=== PATIENT | female | born 1990 | race Caucasian/White ===

== ENCOUNTER 2022-03-05 14:46 | Emergency (ER) | payer BC, SELFPAY ==
[2022-03-05 15:30] VITALS: BP 137/71; PULSE 104; RESP 18; TEMP 36.4; O2SAT 99; BMI 33.5
--- NOTE | 2022-03-05 16:46 | ED_ITS ---
HPI - General Adult General Chief complaint: Allergic Reaction Stated complaint: Allergic reaction, symptoms persit Time Seen by Provider: 03/05/22 16:32 History of Present Illness HPI narrative: This 31-year-old male was stung by a bee a couple days ago and has increasing swelling and erythema of his left hand. He was seen in urgent care yesterday and started on Keflex. He has taken 6 tablets since then. He reports increased swelling and states that the redness has extended from the border of his left wrist up into his forearm by about 5 more cm. He does not report any fever or other systemic symptoms. Related Data Home Medications Medication Instructions Recorded Confirmed cephalexin 500 mg capsule mg 03/05/22 testosterone cypionate 200 mg/mL mg 03/05/22 intramuscular oil Previous Rx's Medication Instructions Recorded amoxicillin 875 mg-potassium 1 tab PO BID 10 days #20 tabs 03/05/22 clavulanate 125 mg tablet methylprednisolone 4 mg tablets in See Rx Instructions PO .COMPLEX 03/05/22 a dose pack (Medrol (Santi)) #21 ea Allergies Allergy/AdvReac Type Severity Reaction Status Date / Time nortriptyline Allergy Verified 03/05/22 15:34 Review of Systems Status of ROS: Reports: 10 or more systems reviewed and unremarkable except as noted in History and below Narrative: Constitutional: No fevers, no weight gain or loss. Eyes: No discharge. No vision changes. HENT: No congestion, no sore throat, no ear pain. Cardiovascular: No chest pain, no palpitations. Respiratory: No shortness of breath, no wheezes, no cough. Gastrointestinal: No abdominal pain, no vomiting, no diarrhea. Genitourinary: No dysuria, no hematuria. Musculoskeletal: Normal range of motion. Skin: Left hand swelling with erythema. Neurological: No dizziness, weakness, sensory change, speech change. Endo/Heme/Allergies: No bruising or bleeding. No polydipsia. Pysch: no suicidality, no anxiety, no insomnia. All other systems reviewed and are negative. Exam Narrative: Exam Narrative: Constitutional: Well-developed, well-nourished, no acute distress. HEENT: Normocephalic, atraumatic. Neck: Normal range of motion. Nontender. Supple. Heart: Intact distal pulses. Lungs: No chest discomfort. No wheezes, rhonchi, or rales. Abdomen: Nontender. Back: Normal range of motion. Extremities: Normal range of motion. Left hand swelling and erythema secondary to a bee sting with subsequent cellulitis. There is no sign of abscess. Skin: Intact. No rash. Warm. No erythema or pallor. Neurologic: No altered sensation. No weakness. Alert and oriented. Psychiatric: No suicidality. No anxiety or depression. No insomnia. Nursing notes and vitals signs are reviewed. Const: Vital Signs, click to edit/add: Vital Signs - 24 hr 03/05/22 15:30 Temperature 97.5 F L Pulse Rate [Right Pulse Oximeter] 104 H Respiratory Rate 18 Blood Pressure [Ri t Upper Arm] 137/71 Pulse Oximetry 99 Oxygen Delivery Me thod Room Air Course Vital Signs Vital signs: Initial Vital Signs Temperature 97.5 F L 03/05/22 15:30 Temperature Source Temporal Artery Scan 03/05/22 15:30 Pulse Rate 104 H 03/05/22 15:30 Respiratory Rate 18 03/05/22 15:30 Blood Pressure 137/71 03/05/22 15:30 Blood Pressure Mean 93 03/05/22 15:30 Blood Pressure Position Sitting 03/05/22 15:30 Pulse Oximetry 99 03/05/22 15:30 Oxygen Delivery Method 03/05/22 15:30 Vital Signs Temperature 97.5 F L 03/05/22 15:30 Pulse Rate 104 H 03/05/22 15:30 Respiratory Rate 18 03/05/22 15:30 Blood Pressure 137/71 03/05/22 15:30 Pulse Oximetry 99 03/05/22 15:30 Oxygen Delivery Method 03/05/22 15:30 Temperature 97.5 F L 03/05/22 15:30 Pulse Rate 104 H 03/05/22 15:30 Respiratory Rate 18 03/05/22 15:30 Blood Pressure 137/71 03/05/22 15:30 Pulse Oximetry 99 03/05/22 15:30 Oxygen Delivery Method 03/05/22 15:30 Medical Decision Making MDM Narrative Medical decision making narrative: This patient comes in with swelling and erythema of his left hand due to a bee sting. He arrives with no sign of fever but does have a pulse at 104 beats per minute. His blood pressure is in normal range. He is not showing signs of systemic infection or sepsis. His symptoms are yet rather localized but have spread a little bit from yesterday which may be a typical response to the bee sting and subsequent cellulitis. He has been taking Keflex. I did advise him to discontinue this medicine and did provide a prescription for Augmentin and a Medrol Dose Pack. I describe signs and symptoms that would indicate a need for return and re-evaluation. Discharge Plan Discharge Clinical Impression: Cellulitis, Allergic reaction Patient Disposition: Home, Self-Care Condition: Stable Additional Instructions: Take medication as prescribed. Follow up with MD or return if worsening symptoms happen. Prescriptions: New methylprednisolone [Medrol (Santi)] 4 mg tablets,dose pack See Rx Instructions .ROUTE .COMPLEX Qty: 21 0RF Rx Instructions: orally per package directions amoxicillin-pot clavulanate 875-125 mg tablet 1 tab PO BID 10 Days Qty: 20 0RF No Action cephalexin 500 mg capsule testosterone cypionate 200 mg/mL oil Label Comments: INJECT 0.5 ML (100 MG) INTRAMUSCULAR ONCE WEEKLY. Follow Up/Referrals: Zoe Mas MD [Primary Care Provider] - Stand Alone Forms: [facility] Info Instructions
--- OUTSIDE RECORDS SUMMARY | 2022-03-05 17:07 | XMS_ITS | Encounter Summary ---
:1990 Author Organization [facility] Address [address] [place] [address]. [place] [address] Care Team Providers Name Role Phone Zoe Mas MD Primary Care Provider Corbin Galvin Unavailable Sowmya Up MD Unavailable Encounter Details Date Type Department Care Team Description 02/19/2020 Travel Social History Tobacco Use Types Packs/Day Years Used Date Never Smoker Dip, chew, snus or snuff Jose L t: 03/12/2019 Smokeless Tobacco: Former User Q uit: 03/12/2019 Alcohol Use Standard Drinks/Week Comments Yes 0 (1 standard drink = 0.6 oz pure alcoho l) occasionally Alcohol Habits Answer Date Recorded How often do you have a drink containing alcohol? Not asked How many drinks containing alcohol do you have on a Not aske d typical day when you are drinking? How often do you have six or more drinks on one occasion? No t asked Comment: occasionally 12/17/2019 Sex Assigned at Date Recorded Female 11/03/2018 10:19 AM CDT COVID-19 Exposure Response Date Recorded In the last month, have you been in contact with No / Unsure 02/19/2020 12:17 PM CDT someone who was confirmed or suspected to have Coronavirus / COVID-19? documented as of this encounter Plan of Treatment Not on filedocumented as of this encounter Visit Diagnoses Not on filedocumented in this encounter Care Teams Social Services Coordinator Relationship Specialty Start Date End Date Zoe Mas MD PCP - General 11/03/18 [facility] [address] [place] [address] Corbin Galvin Specialty Compliance Examiner Plastic Surgery 11/03/18 Sowmya Up MD Plastic Surgery 11/03/[address] [place] [address] [address] [place] [address] documented as of this encounter
--- OUTSIDE RECORDS SUMMARY | 2022-03-05 17:07 | XMS_ITS | Encounter Summary ---
:1990 Author Organization [place] Address [facility] [place] [address] Care Team Providers Name Role Phone Zoe Mas MD Primary Care Provider Corbin Galvin Unavailable Sowmya Up MD Unavailable Reason for Visit Reason Comments Surgical Followup Pt here for 8 week post op Encounter Details Date Type Department Care Team Description 02/19/2020 [facility] Visit [facility] Sowmya Up S/Santhosh b ilateral Reconstructive Surge marely Petersen MD mastectomy (Primary [address] [facility] [address] 4th Floor [facility] [address] [place] [address] [phone] Social History Tobacco Use Types Packs/Day Years [...] / COVID-19? documented as of this encounter Progress Notes Sowmya Up MD - 02/19/2020 12:30 PM CDT PLASTICS POST-OP This is a 29 year old trans male with a history of gender dysphoria who presents 2 months post-op after a bilateral simple mastectomy with nipple graft conservation on 12/18. He is here today by himself. Denies zingers. Occasionally experiences discomfort around incisions of nipples grafts when he shivers. Incision scars sensitive to moving direct pressure. States he has newly developed left lateral striae near nipple graft. Slight tightness but not limiting. Reports full range of motion. Had been applying Mederma daily but discontinued because it was $20 for a small tube that would onlylast him a few days. PE: Chest: Nice chest contour. Good symmetry. Slight thickness of incision scars, variable along incisions, with more on right side. Right nipple graft slightly flatter and more pigmented than the left. Left nipple regaining pigmentation around perimeter. [place] left lateral striae. Hirsute along sternum. Tiny bilateral dog-ears. Photos taken with verbal consent. A&P: 29 year old trans male who presents 2 months post-op after a bilateral simple mastectomy with nipple graft conservation on 12/19/19. We discussed scar reducing techniques, such as Mederma, silicone strips, vitamin E oil, emu oil, massage and when he may begin using these. He will follow up 12 months post-op. Causes for returning sooner were discussed. This note was prepared on behalf of Sowmya Up MD by Sarah Roy, a trained medical attendant, based on my observations and the provider's statements to me. documented in this encounter Nursing Notes King Mckeon EMT - 02/19/2020 12:30 PM CDT Chief Complaint Patient presents with ??? Surgical Followup Pt here for 8 week post op There were no vitals filed for this visit. There is no height or weight on file to calculate BMI. Lissett Malik UTILITY FORESTER No vitals taken per provider documented in this encounter Plan of Treatment Not on filedocumented as of this encounter Visit Diagnoses Diagnosis S/P bilateral mastectomy - Primary Acquired absence of breast and nipple documented in this encounter Care Teams Assistant Manager Retail Relationship Specialty Start Date End Date Zoe Mas MD PCP - General 11/03/18 [facility] [address] [place] [address] Corbin Galvin Specialty Baling Machine Operator Plastic Surgery 11/03/18 Sowmya Up MD Plastic Surgery 11/03/[address] [place] [address] [address] [place] [address] documented as of this encounter
--- OUTSIDE RECORDS SUMMARY | 2022-03-05 17:07 | XMS_ITS | Clinical Summary ---
:1990 Author Organization [place] Address [facility] [place] [address] Care Team Providers Name Role Phone Zoe Mas MD Primary Care Provider Corbin Galvin Unavailable Sowmya Up MD Unavailable Allergies Active Allergy Reactions Severity Noted Date Comments Birch Trees 12/17/2019 Daucus [place] Anaphylaxis High 12/17/2019 Nortriptyline High 12/17/2019 psychosis Pollen Extract 12/17/2019 Shrimp Anaphylaxis High 12/17/2019 (Shellfish cont aining products) Sumatriptan Other (See Comments) High 06/12/2019 psychos is Verapamil Medium 12/17/2019 Burning in vein s Yeast 12/17/2019 Medications Medication Sig Dispensed Refills Start Date End Date Status testosterone cypionate Inject 60 mg into 0 Active (DEPOTESTOSTERONE) 200 the muscle once a MG/ML week injectionIndications: Transgender Male methylphenidate 0 10/19/2019 Act ambrose (RITALIN) 20 MG tablet fluticasone-salmeterol Inhale 1 puff into 0 Active (ADVAIR) 500-50 the lungs 2 times MCG/DOSE inhaler daily EPINEPHrine (ANY BX Inject 0.3 mg into 0 Active GENERIC EQUIV) 0.3 the muscle as MG/0.3ML injection needed for 2-pack anaphylaxis ipratropium - Take 1 vial by 0 A ctive albuterol 0.5 mg/2.5 nebulization every mg/3 mL (DUONEB) 6 hours as needed 0.5-2.5 (3) MG/3ML neb for shortness of solution breath / dyspnea or wheezing albuterol (PROVENTIL) Take 2.5 mg by 0 Active (2.5 MG/3ML) 0.083% nebulization every neb solution 6 hours as needed for shortness of breath / dyspnea or wheezing ondansetron Take 1 tablet (4 12 tablet 0 12/19/2019 Active (ZOFRAN-ODT) 4 MG ODT mg) by mouth every tabIndications: Gender 8 hours as needed dysphoria in for nausea adolescent and adult Additional Information Patient not taking. Reported on 12/25/2019 oxyCODONE IR (ROXICODONE) 10 MG Take 0.5-1 tablets 20 tablet 0 12/19/2019 Active tabletIndications: Gender (5-10 mg) by mouth dysphoria in adolescent and every 6 hours as adult needed for severe pain hydrOXYzine (ATARAX) 25 MG Take 1 tablet (25 mg) 12 tablet 0 0 12/25/2019 Active tabletIndications: Gender by mouth 3 times dysphoria in adolescent and daily as needed for adult itching Additional Information Patient not taking. Reported on 02/19/2020 Active Problems Problem Noted Date Gender dysphoria in adolescent and adult 06/28/2019 Overview: Added automatically from request for aly rand [id number] Social History Tobacco Use Types Packs/Day Years [...] Date Recorded Female 11/03/2018 10:19 AM CDT Last Filed Vital Signs Vital Sign Reading Time Taken Comments Blood Pressure 133/93 12/19/2019 7:00 PM CDT Pulse 105 12/19/2019 6:15 PM CDT Temperature 36.9 ??C (98.4 ??F) 12/19/2019 6:00 PM CDT Respiratory Rate 10 12/19/2019 6:15 PM CDT Oxygen Saturation 96% 12/19/2019 6:15 PM CDT Inhaled Oxygen Concentration - - Weight 96.3 kg (212 lb 4.9 oz) 12/19/2019 11:17 AM CDT Height 162.6 cm (5' 4) 12/19/2019 11:17 AM CDT Body Mass Index 36.44 12/19/2019 11:17 AM CDT Plan of Treatment Health Maintenance Due Date Last Done Comments ADVANCE CARE PLANNING 1990 ANNUAL REVIEW OF HM ORDERS 1990 PREVENTIVE CARE VISIT 1990 HIV SCREENING 2005 HEPATITIS C SCREENING 2008 PAP 10/28/2011 DTAP/TDAP/TD IMMUNIZATION (1 10/28/2015 - Tdap) PHQ-2 (once per calendar 05/30/2021 06/12/2019, year) 06/12/2019 COVID-19 Vaccine (4 - Booster 06/10/2021 04/15/2021, for Pfizer series) 06/17/2020, 05/27/2020 INFLUENZA VACCINE (#1) 2022 04/15/2021, 03/05/2020 HEPATITIS B IMMUNIZATION Aged Out No long er eligible based on patient's age to complete this to pic IPV IMMUNIZATION Aged Out No longer eligi ble based on patient's age to complete this to pic MENINGITIS IMMUNIZATION Aged Out No longe r eligible based on patient's age to complete this to pic Pneumococcal Vaccine: Aged Out No longer eligible based Pediatrics (0 to 5 Years) and on patient's age to At-Risk Patients (6 to 64 comple te this topic Years) Insurance Payer Benefit Plan / Subscriber ID Effective Dates Phone Addre ss Type Group BCBS BCBS OF [place] [id number] 2020-Panda [phone] [address] [address] Indemnity t 0 [place] [address] (Home) [address] [place] [address] Rick Lewis Personal/Family Self [address] ([address]) [address] [place] [address] Advance Directives For more information, please contact: [phone] Latest Code Status on File Code Status Date Activated Date Inactivated Comments Full Code 12/19/2019 12:16 PM Code status determined by: Discussion with patient/ legal de cision maker Care Teams Stock Repairer Relationship Specialty Start Date End Date Zoe Mas MD PCP - General 11/03/18 [facility] [address] [place] [address] Corbin Galvin Specialty Sales [employer] Plastic Surgery 11/03/18 Sowmya Up MD Plastic Surgery 11/03/[address] [place] [address] [address] [place] [address]
--- OUTSIDE RECORDS SUMMARY | 2022-03-05 17:07 | XMS_ITS | Encounter Summary ---
:1990 Author Organization [facility] Address [address] [place] [address]. [place] [address] Care Team Providers Name Role Phone Zoe Mas MD Primary Care Provider Corbin Galvin Unavailable Sowmya Up MD Unavailable Encounter Details Date Type Department Care Team Description 12/25/2019 Travel Social History Tobacco Use Types Packs/Day [...] been in contact with No / Unsure 12/25/2019 3:36 PM CDT someone who was confirmed or suspected to have Coronavirus / COVID-19? documented as of this encounter Plan of Treatment Not on filedocumented as of this encounter Visit Diagnoses Not on filedocumented in this encounter Care Teams Director Client Relationship Specialty Start Date End Date Zoe Mas MD PCP - General 11/03/18 [facility] [address] [place] [address] Corbin Galvin Specialty Science Liaison Plastic Surgery 11/03/18 Sowmya Up MD Plastic Surgery 11/03/[address] [place] [address] [address] [place] [address] documented as of this encounter
--- OUTSIDE RECORDS SUMMARY | 2022-03-05 17:07 | XMS_ITS | Clinical Summary ---
:1990 Author Organization [employer] [place] [address] Care Team Providers Name Role Phone Zoe Mas MD Primary Care Provider Allergies Active Allergy Reactions Severity Noted Date Comments Bee Pollen Angioedema 03/04/2022 Birch 02/10/2007 Sumatriptan 04/17/2008 Nortriptyline 04/17/2008 Unlisted Allergen (Include 05/08/2009 A ny extended release Detail In Comments) medicati ons Homeopathic Products 02/10/2007 Shellfish Containing 02/10/2007 Products Verapamil 04/17/2008 Yeast, Dried 02/10/2007 Medications Medication Sig Dispensed Refills Start Date End Date Status BD LUER-LAYTON USE TO ADMINISTER 99 12/08/2018 Active SYRINGE 1 mL syrg TESTOSTERONE CYPIONATE INTRAMUSCULARLY ONCE WEEKLY DIRECTED. EPINEPHrine Inject 0.3 mg 2 Each 1 09/01/2021 Act ambrose (EpiPen 2-Santi) 0.3 intramuscular one mg/0.3 mL time if needed for injectionIndicatio Allergic Reaction. ns: Allergic reaction to bee sting [place] Disp Butler Inject intramuscular. 12 Each 3 12/16/2021 Active 18Gx1 18 gauge x USE TO DRAW UP 1 TESTOSTERONE ndleIndications: CYPIONATE INTO Gender dysphoria SYRINGE ONCE WEEKLY DIRECTED. B-D Hypodermic Inject 12 Each 3 12/16/2021 Acti ve Needle 23Gx1 23 intramuscular/subcuta gauge x 1 neous. USE TO ndleIndications: ADMINISTER Gender dysphoria TESTOSTERONE CYPIONATE BY IM ROUTE ONCE WEEKLY DIRECTED. testosterone Inject 100 mg 4 mL 1 12/17/2021 Ac tive cypionate intramuscular once (DEPO-TESTOSTERONE weekly. ) 200 mg/mL injectionIndicatio ns: Gender identity disorder, unspecified cephalexin Take 1 Capsule (500 28 Capsule 0 03/04/2022 02 Active (KEFLEX) 500 mg mg) by mouth four 2 capsuleIndications times daily for 7 : Bee sting, days. accidental or unintentional, initial encounter EPINEPHrine Inject 0.3 mg (1 pen) 2 Each 3 03/04/2022 Active (EPIPEN) 0.3 intramuscular each mg/0.3 mL time if needed for auto-injectorIndic Allergic Reaction. ations: Bee sting, accidental or unintentional, initial encounter Active Problems Problem Noted Date Gender dysphoria 07/19/2018 Overview: Female to male transgender person. Prefe rs he/him pronouns. Preferred name is RICK. 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 Headache(784.0) 02/22/2007 07/28/2007 Other developmental speech or language disorder 02/10/2007 05/22/2013 Muscle weakness (generalized) 02/10/2007 05/22/2013 Overview: left sided Head injury, unspecified 11/28/2006 05/22/2013 Overview: history of head injury with LOC at age [age] years SUICIDAL IDEATION 11/28/2006 11/28/2006 Mixed receptive-expressive language disorder 10/31/2006 05/22/2013 Overview: central auditory processing disorder Unspecified asthma(493.90) 08/27/2006 08/02/2014 Unspecified hearing loss 08/27/2006 05/22/2013 Depressive disorder, not elsewhere classified 08/27/2006 08/02/2014 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 Encounters Date Type Specialty Care Team Description 03/04/2022 Office Visit Chris Murdock MD Bee St ing 03/04/2022 Travel 03/04/2022 Nurse Triage Zoe Mas MD Bee S ting 02/26/2022 Telephone Zoe Mas MD Error -please disregard 02/06/2022 Telephone Zoe Mas MD Error -please disregard 12/17/2021 Orders Only Zoe Mas MD <No s cans attached> 12/16/2021 Office Visit Zoe Mas MD Medic ation Management (testosterone l evels check) 12/16/2021 Travel 12/11/2021 Travel from Last 3 Months Immunizations Name Administration Dates Next Due COVID-19 vaccine (OutTrippin 04/15/2021, 06/17/2020, 30mcg/0.3mL) PF, MDV DTP 10/17/1998, 01/08/1993, 05/29/1991, 03/30/1991, 01/24/1991 DTaP 10/17/1998, 01/08/1995, 05/29/1991, 03/30/1991, 01/24/1991 HIB PRP-D (ProHIBIT) 01/08/1993, 05/29/1991, 03/30/1991, 01/24/1991 Hepatitis B (Adult) 01/15/2003 Hepatitis B (Peds) 12/01/2000, 09/08/1999, 10/17/1998 Hepatitis B, Unspecified 10/17/1998 Hib Conjugate, Unspecified 01/08/1993, 03/29/1991, 1 Human Papilloma Virus Vaccine 08/23/2007, 03/03/2007, 200603/08/2007 Inactivated Polio Vaccine 09/28/1998, 01/08/1993, 03/30/1991 , 01/24/1991 Influenza A (H1N1), Inactivated 04/21/2009 Influenza A (H1N1), Inactivated (Age 1104/21/2009 >=3 Years) Influenza, IIV3 (Age 6-35 mos) 03/05/2020 Influenza, IIV3 (Age >=3 years) 02/25/2012, 06/01/2010, 01/29, 04/12/2007, 03/07/2006 Influenza, IIV4 04/15/2021 MMR 09/08/1999, 02/27/1992 Meningococcal Vaccine (Menveo) 10/28/2010 Pneumococcal Conj 20-valent (Prevnar 12/16/2021 20) Pneumococcal Poly,23-Valent 02/19/2009 (Pneumovax) Polio Virus, Unspecified 10/17/1998, 01/08/1993, 03/30/1991, 01/24/1991 Td (Age >=7 Years) 01/15/2003 Tdap 09/29/2017, 09/13/2007 Family History Medical History Relation Name Comments Other Father glaucoma Heart Disease Maternal Aunt half-aunt o f [place] at 41 Hyperlipidemia Maternal Aunt Diabetes Maternal Grandfather Heart Disease Maternal Grandfather CHF and [place] Hyperlipidemia Maternal Grandfather Cancer-breast Maternal Grandmother at 28 Diabetes Maternal Grandmother Heart Disease Maternal Grandmother CHF Hyperlipidemia Maternal Grandmother Asthma Maternal Uncle Heart Disease Maternal Uncle [place]'s in 3 uncles Hyperlipidemia Maternal Uncle Asthma Mother Diabetes Other 1 maternal cousin Heart Disease Other 1 maternal great g randma and grandpa Other Other 1 severe glaucoma on dad's side Cancer Other 2 half sister had uterine cancer, pituitary tumor; doing oka y Cancer-breast Other 3 great-grandmothe r, great aunt, aunt Asthma Paternal Grandfather Asthma Paternal Grandmother Cancer-colon No Family History Relation Name Status Comments Father Alive Maternal Aunt Maternal Grandfather Maternal Grandmother Maternal Uncle Mother Alive Other 1 Other 2 Other 3 Paternal Grandfather Paternal Grandmother Social History Tobacco Use Types Packs/Day Years Used Date Never Smoker Smokeless Tobacco: Former User Chew Tobacco Cessation: Counseling Given: Yes Alcohol Use Standard Drinks/Week Comments Yes 0 (1 standard drink = 0.6 oz pure alcoho l) rare Alcohol Habits Answer Date Recorded How often do you have a drink containing alcohol? 2-3 times a week 04/25/2019 How many drinks containing alcohol do you have on a 1 or 2 04/25/2019 typical day when you are drinking? How often do you have six or more drinks on one Never 04/25/2019 occasion? Comment: rare 03/04/2022 Sex Assigned at Date Recorded Not on file COVID-19 Exposure Response Date Recorded In the last 10 days, have you been in contact with No / Unsu re 03/04/2022 9:23 AM CDT someone who was confirmed or suspected to have Coronavirus/COVID-19? Obstetrics History Last Filed Vital Signs Vital Sign Reading Time Taken Comments Blood Pressure 144/85 03/04/2022 10:55 AM CDT Pulse 91 03/04/2022 10:55 AM CDT Temperature 36.2 ??C (97.2 ??F) 03/04/2022 10:55 AM CDT Respiratory Rate 16 03/04/2022 10:55 AM CDT Oxygen Saturation 97% 03/04/2022 10:55 AM CDT Inhaled Oxygen Concentration - - Weight 90.9 kg (200 lb 4.8 oz) 03/04/2022 10:55 AM CDT Height 162.6 cm (5' 4) 03/04/2022 10:55 AM CDT Body Mass Index 34.38 03/04/2022 10:55 AM CDT Plan of Treatment Health Maintenance Due Date Last Done Comments COVID-19 vaccine series (4 - 06/10/2021 04/15/2021, 021, Booster for Pfizer series) 05/27/2020 Influenza for age 9-49 01/28/2022 04/15/2021, 02/25/2012, 06/01/2010, Additional history exists Depression screening for age 12+ 04/15/2022 04/15/2021, , 12/04/2019, Additional history exists BMI (ht and wt on same day) for 03/04/2023 03/04/2022, 11/28, age 18+ 04/15/2021, Additional history exists Tetanus booster 09/30/2027 09/29/2017, 09/13/2007, 01/15/2003 Hepatitis C screening for age Completed 09/23/2016 18-79 Tdap Completed 09/29/2017, 09/13/2007 Pneumococcal series for age 19-64 Completed 12/16/2021, Procedures Procedure Name Priority Date/Time Associated Comments Diagnosis HEPATIC FUNCTION Routine 12/16/2021 5:00 PM Gender dysphoria R esults for this PANEL CDT procedure are i n the results section. HEMOGLOBIN Routine 12/16/2021 5:00 PM Gender dysphoria Resul ts for this CDT procedure are i n the results section. GLUCOSE, RANDOM Routine 12/16/2021 5:00 PM Gender dysphoria Re sults for this CDT procedure are i n the results section. TESTOSTERONE,TOTAL Routine 12/16/2021 5:00 PM Gender dysphoria Results for this CDT procedure are i n the results section. from Last 3 Months Results (ABNORMAL) GLUCOSE, RANDOM (12/16/2021 5:00 PM CDT) athologist Signature GLUCOSE,RANDOM 52 (L) 65 - 140 12/16/2021 [facility] mg/dL 5:12 PM CDT [facility] Specimen Anatomical Collection Method / Collection Time Recei mandy Time (Source) Location / Volume Laterality Blood BLOOD SPECIMEN / Venipuncture / 12/16/2021 5:00 2021 5:01 Unknown Unknown PM CDT PM CDT Zoe Mas MD CHEMISTRY Performing Organization Address City/State/ZIP Code Phon e Number [facility] [address] [place] [address] HEMOGLOBIN (12/16/2021 5:00 PM CDT) athologist Signature HEMOGLOBIN 15.7 13.5 - 17.5 12/16/2021 [facility] g/dL 5:08 PM CDT [facility] MCV 85 80 - 100 fL 12/16/2021 [facility] 5:08 PM CDT [facility] Specimen Anatomical Collection Method / Collection Time Recei mandy Time (Source) Location / Volume Laterality Blood BLOOD SPECIMEN / Venipuncture / 12/16/2021 5:00 2021 5:01 Unknown Unknown PM CDT PM CDT Zoe Mas MD HEMATOLOGY Performing Organization Address City/State/ZIP Code Phon e Number [facility] [address] [place] [address] TESTOSTERONE,TOTAL (12/16/2021 5:00 PM CDT) athologist Signature TESTOSTERONE,T 332 ng/dL 12/17/2021 [facility] 5:11 PM CDT LABORATORY-[facility] Specimen Anatomical Collection Method / Collection Time Recei mandy Time (Source) Location / Volume Laterality Blood BLOOD SPECIMEN / Venipuncture / 12/16/2021 5:00 2021 5:01 Unknown Unknown PM CDT PM CDT Narrative [facility] - 12/17/2021 5:11 PM CDT Reference Range: Age Range ? Female ? Ma le All Ages ?14-53 ??ng/dL ? 241 -826 ng/dL Zoe Mas MD CHEMISTRY Performing Organization Address City/State/ZIP Code Phon e Number [facility] [address] [place] [address] LABORATORY-[facility] 2000 LABORATORY LIVER PANEL (HEPATIC FUNCTION PANEL) (12/16/2021 5:00 PM CDT) athologist Signature ALBUMIN 4.7 3.5 - 5.2 12/17/2021 [facility] g/dL 4:59 PM CDT [facility] PROTEIN,TOTAL 7.6 6.0 - 8.0 12/17/2021 [facility] g/dL 4:59 PM CDT [facility] GLOBULIN 2.9 2.0 - 3.7 12/17/2021 [facility] g/dL 4:59 PM CDT [facility] A/G RATIO 1.6 1.0 - 2.0 12/17/2021 [facility] 4:59 PM CDT [facility] BILIRUBIN,TOTAL 0.5 0.2 - 1.2 12/17/2021 [facility] mg/dL 4:59 PM CDT [facility] BILIRUBIN,DIRECT 0.2 0.1 - 0.5 12/17/2021 [facility] mg/dL 4:59 PM CDT [facility] BILIRUBIN,INDIRE 0.3 0.2 - 0.8 12/17/[address] [facility] [address] mg/dL 4:59 PM CDT [facility] ALK PHOSPHATASE 116 50 - 136 12/17/2021 [facility] IU/L 4:59 PM CDT [facility] ALT (SGPT) 16 8 - 45 12/17/2021 [facility] IU/L 4:59 PM CDT [facility] AST (SGOT) 21 2 - 40 12/17/2021 [facility] IU/L 4:59 PM CDT [facility] Specimen Anatomical Collection Method / Collection Time Recei mandy Time (Source) Location / Volume Laterality Blood BLOOD SPECIMEN / Venipuncture / 12/16/2021 5:00 2021 5:01 Unknown Unknown PM CDT PM CDT Zoe Mas MD CHEMISTRY Performing Organization Address City/State/ZIP Code Phon e Number [facility] [address] [place] [address] LABORATORY-[facility] 2000 LABORATORY from Last 3 Months Insurance Payer Benefit Plan / Subscriber ID Effective Dates Phone Addre ss Type Group [employer] [id number] 2010-Presen [address] [place] [address] [facility] [id number] 2020-Prese [address] [facility] [place] [id number] [employer] [place] [id number] 2021-Presen [address] ADVANTAGE t [place] PRESTON [phone] [employer] [facility] Health/Bib Other [address] [place] (Home) [address] [place] [address] Care Teams Auto Vinyl Top Installer Relationship Specialty Start Date End Date Zoe Mas MD PCP - General Family Practice 10/31/18 [address] [place] [address]
--- OUTSIDE RECORDS SUMMARY | 2022-03-05 17:08 | XMS_ITS | Encounter Summary ---
:1990 Author Organization [place] Address [facility] [place] [address] Care Team Providers Name Role Phone Zoe Mas MD Primary Care Provider Corbin Galvin Unavailable Sowmya Up MD Unavailable Reason for Visit Reason Comments Surgical Followup Pt hre for 1week post op Encounter Details Date Type Department Care Team Description 12/25/2019 [facility] Sowmya Up dysphoria in Reconstructive Surge ry MD [facility] [address] 4th Floor [facility] [address] [place] [address] [phone] Social History Tobacco Use Types Packs/Day Years [...] encounter Progress Notes Sowmya Up MD - 12/25/2019 4:00 PM CDT PLASTICS POST-OP This is a 29 year old trans male with a history of gender dysphoria who presents 6 days post-op after a bilateral simple mastectomy with nipple graft reconstruction on 12/19/2019. Great aunt (mother) is here today. Rick reports he did quite well after surgery. He denies nausea and reports spurts of pruritis which the hydroxyzine helped with. He requested a refill of this today and a script was provided for #12,25 mg for PRN pruritis, no refills. He denies constipation. The right lateral incision has been bothering him specifically in the axillary region, but otherwise pain has been well controlled since surgery. He discontinued oxycodone x 2 days ago (still has 6 pills left) and since has been alternating Tylenol and ibuprofen which has controlled his pain just fine - advised him to discontinue ibuprofen due to its blood thinning property going forward and manage pain with Tylenol only, up to 650 mg QID (can supplement with remaining oxycodone if needed). PE: Chest: Nice upper chest contour and symmetry. Some resolving ecchymosis noted along bilateral medial incisions. Right flap is mildly edematous and a bit thicker, rather than a underlying fluid collection (less noticeable when standing) - Rick reports less drainage from right HONEY compared to the left. Nipple grafts 100% take. Some mild edema at posterior incisions, no true dogears. Dermabond intact. Photo taken with verbal consent. A&P: 29 year old trans male with a history of gender dysphoria who presents 6 days post-op aftera bilateral simple mastectomy with nipple graft reconstruction on 12/19/2019. As HONEY drain output was within normal limits, bilateral HONEY drains removed without difficulty. Also removed OnQ catheters. We discussed when to remove the Dermabond on the incision. He was given instructions and supplies for nipple graft dressings while they mature during the next week. I also instructed the patient to wear his THIERRY wrap for an additional week - today wrapped him in a double wrap for extra compression over right flap. Asked Rick to keep an eye on right flap and note if edema gets worse with time. (? Fluid collection under flap) I reviewed with the patient how long to maintain limited activities. We discussed scar reducing techniques, such as Mederma, silicone strips, vitamin E oil, emu oil, massage and when he may begin usingthese. Problems to look out for during the recovery period were discussed, including: spitting sutures, incision dehiscence, hematoma/seroma, thick scarring, fluid accumulation under skin flap, or delayed nipple graft healing. 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 He will follow up at 2 months post- op. Causes for returning sooner were discussed - including increased swelling of right flap. This note was prepared on behalf of Sowmya Up MD by Trinity Tripp, a trained senior medical technologist, based on my observations and the provider's statements to me. documented in this encounter Nursing Notes King Mckeon EMT - 12/25/2019 4:00 PM CDT Chief Complaint Patient presents with ??? Surgical Followup Pt hre for 1week post op There were no vitals filed for this visit. There is no height or weight on file to calculate BMI. [facility] TECH documented in this encounter Plan of Treatment Not on filedocumented as of this encounter Visit Diagnoses Diagnosis Gender dysphoria in adolescent and adult documented in this encounter Care Teams Sanforizing Machine Operator Relationship Specialty Start Date End Date Zoe Mas MD PCP - General 11/03/18 [facility] [address] [place] [address] Corbin Galvin Specialty Basin Finish Operator Tig Welder Plastic Surgery 11/03/18 Sowmya Up MD Plastic Surgery 11/03/[address] [place] [address] [address] [place] [address] documented as of this encounter
--- OUTSIDE RECORDS SUMMARY | 2022-03-05 17:08 | XMS_ITS | Encounter Summary ---
:1990 Author Organization [place] Address [facility] [place] [address] Care Team Providers Name Role Phone Zoe Mas MD Primary Care Provider Corbin Galvin Unavailable Sowmya Up MD Unavailable Reason for Visit Reason Onset Date Comments Prior Authorization 10/25/2019 received extension o n PA for dos 12/24/1924-[id number]- date span 10/18/19-06/29/2020 Encounter Details Date Type Department Care Team Description 10/25/2019 Telephone General Surgery Sowmya Up Prior Authorization [facility] MD [facility] (received extension on 4th Floor [address] [facility] PA for dos [place], [place] [address] 12/24/1937-[id number]-date [id number] [place], [place] span 10/18/19-06/29/2020) [phone] [facility] [phone] (Wo rk) Social History Tobacco Use Types Packs/Day Years Used Date Never Smoker Dip, chew, snus or snuff Jose L t: 03/12/2019 Smokeless Tobacco: Former User Q uit: 03/12/2019 Alcohol Use Standard Drinks/Week Comments Not Currently 0 (1 standard drink = 0.6 oz pure alcoho l) Sex Assigned at Date Recorded Female 11/03/2018 10:19 AM CDT documented as of this encounter Miscellaneous Notes Telephone Encounter - Onelia Milian - 10/25/2019 2:38 PM CDT received extension on PA for dos 12/24/1951-[id number]-date span 10/18/19-06/29/2020 documented in this encounter Plan of Treatment Not on filedocumented as of this encounter Visit Diagnoses Not on filedocumented in this encounter Care Teams Procurement Analyst Relationship Specialty Start Date End Date Zoe Mas MD PCP - General 11/03/18 [facility] [address] [place] [address] Corbin Galvin Specialty Product Safety Tester Plastic Surgery 11/03/18 Sowmya Up MD Plastic Surgery 11/03/18 [address] [facility] [address] [place], [place] [address] documented as of this encounter
--- OUTSIDE RECORDS SUMMARY | 2022-03-05 17:08 | XMS_ITS | Encounter Summary ---
:1990 Author Organization [facility] Address [address] [place] [address]. 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 OnQ [address] [place] [address] Phone: Fax: Referral ID Status Reason Start Date Expiration Date Visits Requ ested Visits Authorized [id number] 1 1 Encounter Details Date Type Department Care Team Description 12/19/2019 Surgery Formerly [facility] Jerzy Up Amandeep ateral Simple PeriOp Services MD [facility], Bilateral [facility] [facility] Nipple Grafts, [place] [address] [facility] [phone] [place] [address] (Wo rk) Surgery Details Date/Time Status Location OR Service Patient Case Class Case Tr auma Class Type Case? 12/19/19 1:05 Posted UR OR UR OR Plastics & Same Day Elective PM 01 Reconstruction Surgery Panel 1 Procedure LRB Anes Op Region Wound Class Commen ts Bilateral Simple Mastectomy, Bilateral General Breast I-Clean Bilateral Nipple Grafts, On-Q Surgeon Surgeon Role Service Panel Jerzy Up MD Primary Plastics & Reconstruct ion 1 Stephanie Carrera PA-C Assisting Human Services Assistant Authorization 1 Special Needs Pt's mother will need 1 hour to get back to picking table worker patient after surgery. Please plan accordingly when calling to have he r come back to review discharge instructions. documented in this encounter Social History Tobacco Use Types Packs/Day Years [...] been in contact with No / Unsure 12/19/2019 10:48 AM CDT someone who was confirmed or suspected to have Coronavirus / COVID-19? documented as of this encounter Last Filed Vital Signs Vital Sign Reading Time Taken Comments Blood Pressure 130/94 12/19/2019 11:17 AM CDT Pulse 96 12/19/2019 11:17 AM CDT Temperature 36.8 ??C (98.2 ??F) 12/19/2019 11:17 AM CDT Respiratory Rate 20 12/19/2019 11:17 AM CDT Oxygen Saturation 100% 12/19/2019 11:17 AM CDT Inhaled Oxygen Concentration - - Weight 96.3 kg (212 lb 4.9 oz) 12/19/2019 11:17 AM CDT Height 162.6 cm (5' 4) 12/19/2019 11:17 AM CDT Body Mass Index 36.44 12/19/2019 11:17 AM CDT documented in this encounter Discharge Instructions Discharge InstructionsBhargavi Live RN - 12/19/2019 5:14 PM CDT Caring for Your Yusef-Mosquera Drain You have been discharged with a Yusef-Mosquera drainage tube. This tube drains fluid from your incision, helping prevent swelling and reducing the risk for infection. The tube is held in place by a few stitches. The drain will be removed when your doctor determines you no longer need it and when the amount of drainage decreases. The color and amount of fluid varies. Right after surgery, the fluid may be bright red and may become clearer over time. Dressing: ??? Keep the skin around the tube dry. ??? If you have a dressing, change it every day. o Wash your hands. o Remove the old bandage. Do not use scissors-you may accidentally cut the tube. o Check for any redness, swelling, drainage, or broken stitches. (Call your doctor with any of thesefindings). o Wash your hands again. o Wet a cotton swab (Q-tip) and clean around the incision and the tube site. Use normal saline solution (salt and water) or soap and water. Start at the tube site and move outward in a circular motion. o Pat dry. o Put a new bandage on the incision and tube site. Make the bandage large enough to cover the whole incision area. o Tape the bandage in place. o Throw out old materials and wash your hands. Home Care: ??? Tape the tube to the skin below the bandage. Make sure to keep some slack in the tube to keep itfrom pulling out. ??? DO NOT sleep on the same side as the tube. ??? Secure the tube and bulb inside your clothing with a safety pin. This helps keep the tube from being pulled out. ??? Keep the bulb compressed at all times, except when you empty it. ??? Empty your drain at least twice a day. Empty it more often if the drain is full. o Lift the opening of the drain. o Drain the fluid into a measuring cup. o Record the amount of fluid each time you empty. Share the information with your doctor at your follow-up visit. o Squeeze the bulb with your hands until you hear air coming out of the bulb. o Close the opening. ??? Tape plastic wrap over the bandage and tube site when you shower. ?Stripping?? the tube helps keep blood clots from blocking the tube. ONLY DO THIS IF YOUR MD INSTRUCTED YOU TO DO SO! o Hold the tubing where it leaves the skin with one hand. This keeps it from pulling on the skin. o Pinch the tubing with the thumb and first finger of your other hand. o Slowly and firmly pull your thumb and first finger down the tube (squeezing the tube between your fingers). Keep squeezing the tube as you run your fingers towards the bulb. If the pulling hurts or feels like it is coming out of the skin, STOP. Begin again more gently. o Let go of the tubing with both hands. If the tube is still blocked, repeat these steps three or four times. Make sure that the bulb is compressed so it creates suction. When to call your doctor: ??? New or increased pain around the tube ??? Redness, warmth, or swelling around the incision or tube ??? Drainage that is foul smelling ??? Vomiting ??? Fever over 101??F degrees ??? Fluid leaking around the tube ??? Incision seems not to be healing ??? Stitches become loose ??? The tube falls out ??? Drainage that changes from light pick to dark red ??? A sudden increase or decrease in the amount of drainage (over 30 ml). Your drainage record: Date Time Bulb 1: Amount of drainage (ml or cc) Bulb 2: Amount of drainage (ml or cc) Notes Rev. 08/2013 Same-Day Surgery Adult Discharge Orders & Instructions For 24 hours after surgery: 1. Get plenty of rest. A responsible adult must stay with you for at least 24 hours after you leave the hospital. 2. Pain medication can slow your reflexes. Do not drive or use heavy equipment. If you have weaknessor tingling, don't drive or use heavy equipment until this feeling goes away. 3. Mixing alcohol and pain medication can cause dizziness and slow your breathing. It can even be fatal. Do not drink alcohol while taking pain medication. 4. Avoid strenuous or risky activities. Ask for help when climbing stairs. 5. You may feel lightheaded. If so, sit for a few minutes before standing. Have someone help you getup. 6. If you have nausea (feel sick to your stomach), drink only clear liquids such as apple juice, quinten joe, broth or 7-Up. Rest may also help. Be sure to drink enough fluids. Move to a regular diet asyou feel able. Take pain medications with a small amount of solid food, such as toast or crackers, to avoid nausea. 7. A slight fever is normal. Call the doctor if your fever is over 100??F (37.7??C) (taken under thetongue) or lasts longer than 24 hours. 8. You may have a dry mouth, muscle aches, trouble sleeping or a sore throat. These symptoms should go away after 24 hours. 9. Do not make important or legal decisions. Pain Management: 1. Take pain medication (if prescribed) for pain as directed by your physician. 2. WARNING: If the pain medication you have been prescribed contains Tylenol (acetaminophen), DO NOT take additional doses of Tylenol (acetaminophen). Call your doctor for any of the followin. Signs of infection (fever, growing tenderness at the surgery site, severe pain, a large amount ofdrainage or bleeding, foul-smelling drainage, redness, swelling). 2. It has been over 8 to 10 hours since surgery and you are still not able to urinate (pee). 3. Headache for over 24 hours. 4. Numbness, tingling or weakness the day after surgery (if you had spinal anesthesia). To contact a doctor, call or: ??? [phone] and ask for the Resident Seed Specialist for: (answered 24 hours a day) ??? Emergency Department: [facility]: [phone] [facility]: [phone] Rev. 02/2014 ON-Q?? C-bloc Continuous Nerve Block Discharge Instructions The Nerve Block: chest ??? Your anesthesiologist performed a nerve block (a procedure that blocks pain to only a specific area) by inserting a small tube in your body. This tube is connected to a pump that will help control your pain. ??? The pump is shaped like a balloon and is filled with medicine that causes numbness or loss of sensation to help control your pain around the incision or site of injury. The pain pump DOES NOT contain controlled substances. ??? The medicine in the pump may alter your ability to feel changes in temperature or pressure. Yourdoctor will tell you if any special precautions apply to you. The Pump ??? DO NOT SQUEEZE THE PUMP. ??? The pump delivers medicine at a very slow rate. ??? You will NOT see the medicine moving through the tubing. ??? As the medicine is delivered, the pump ball will slowly become smaller. ??? It may take a day or so before you notice a change in the size and look of the pump. ??? Depending on the size of your pump, it may take 2 - 5 days to give all the medicine. ??? The middle part of the pump may look like an apple core when empty. Managing Your Pain The Medicine and Infusion Rate: 0.2% Ropivacaine 4mL / hr ??? The continuous nerve block infusion may not block all of the pain from your surgery so it is important that you take the pain medicines prescribed by your surgeon if you need them. ??? If you continue to have difficulty with your pain control, please page or call the anesthesiologist. Caring for Your Pump at Home ??? Wear the pump on the outside of clothing - away from your skin and cold therapy (ice packs). Thedelivery rate is accurate only at room temperature. ??? Make sure the white clamp on the tubing remains open (moves freely on the tubing). ??? Make sure there are no kinks in the tubing. ??? Do not tape or cover up the filter. ??? Protect the pump from sunlight and heat. ??? When sleeping: o Do not place the pump underneath the bed covers where the pump may become too warm. o Do not place the pump on the floor or hang the pump on a bed post as these situations may cause the tubing to get tangled and get pulled out. ??? Bathing/Showering: o We recommend taking sponge baths until the pump is removed. o It is important to not get the area where the tube enters your body wet. ??? It is normal for a small amount of fluid to leak from the hole in your body where the tube is inserted. If this occurs, reinforce the bandage with another bandage. The Infusion ??? Do not turn the infusion off unless your anesthesiologist has told you to do so. ??? Do not change the flow rate of the infusion unless your anesthesiologist told you to do so. Changing the flow rate without your doctor???s instruction may result in the wrong dose of medicine, which could cause serious injury. ??? If your anesthesiologist told you to change the rate of your infusion: o Flip open the clear cover. o Turn the white wilson on the [id number] dial to the instructed rate. (The rate of the infusion should line up with the black arrow at the top of the controller.) o Listen for the click when you move the dial. Removing the Tubing ??? When the pump is empty or if you have been told to stop the infusion you can remove the tubing. Follow these steps: o Wash your hands. o Clamp the tubing (squeeze the white clamp until you hear or feel a click). o Remove the clear dressing that covers the tubing. o Grasp the tubing close to the skin and gently pull. If you meet resistance, stop pulling and page or call your anesthesiologist. o DO NOT cut or forcefully remove the tubing. o After removal, check the end of the tubing for a dark tip. If you do not see a dark tip, page or call your anesthesiologist. o Apply firm pressure over the site until oozing stops. Wash the area with soap and water, dry with a clean towel and then cover with a bandage. ??? The pump is not reusable. Dispose of it in the trash and wash your hands. Troubleshooting ??? Tubing Comes Out From Skin: If the tube accidentally comes out, check the end of the tube for a dark tip. ??? If you see a dark tip simply discard it and use the pain pills prescribed to you by your surgeon. ??? If you don???t see a dark tip, page or call the anesthesiologist. ??? Tubing Disconnection: If the tubing accidentally becomes disconnected from the pump, DO NOT reconnect the pump to the tubing. It may have been contaminated with germs. Close the tubing clamp and immediately page or call your anesthesiologist. ??? Fluid Leaking: If enough fluid is leaking from the pump or the tubing outside your body to soak through the dressing, close the white clamp on the tubing and page or call your anesthesiologist. Immediately report the following to your anesthesiologist: ??? Redness, warmth, swelling, or tenderness at the site the tubing was inserted ??? Increase in pain ??? Fever, chills, sweats ??? Bowel or bladder changes ??? Difficulty breathing ??? Dizziness, lightheadedness ??? Blurred vision ??? Ringing or buzzing in your ears ??? Metal taste in your mouth ??? Numbness and/or tingling around your mouth, fingers or toes ??? Drowsiness ??? Confusion ??? Trouble removing the tubing ??? Dark tip is not present when tubing is removed Notifying your Anesthesiologist o Page: Dial [phone], then enter [phone]. You will be prompted to enter your phone number and thenthe # sign. The anesthesiologist will call you back. o Call: Dial [phone]. Ask to speak to the anesthesiologist web content writer for the [facility]. documented in this encounter Medications at Time of Discharge Medication Sig Dispensed Refills Start Date End Date albuterol (PROVENTIL) Take 2.5 mg by 0 (2.5 MG/3ML) 0.083% neb nebulization every 6 solution hours as needed for shortness of breath / dyspnea or wheezing EPINEPHrine (ANY BX Inject 0.3 mg into 0 GENERIC EQUIV) 0.3 the muscle as needed MG/0.3ML injection for anaphylaxis 2-pack fluticasone-salmeterol Inhale 1 puff into 0 (ADVAIR) 500-50 MCG/DOSE the lungs 2 times inhaler daily ipratropium - albuterol Take 1 vial by 0 0.5 mg/2.5 mg/3 mL nebulization every 6 (DUONEB) 0.5-2.5 (3) hours as needed for MG/3ML neb solution shortness of breath / dyspnea or wheezing methylphenidate 0 10/19/2019 (RITALIN) 20 MG tablet ondansetron (ZOFRAN-ODT) Take 1 tablet (4 mg) 12 tablet 0 0 12/19/2019 4 MG ODT tabIndications: by mouth every 8 Gender dysphoria in hours as needed for adolescent and adult nausea oxyCODONE IR Take 0.5-1 tablets 20 tablet 0 12/19/2019 (ROXICODONE) 10 MG (5-10 mg) by mouth tabletIndications: every 6 hours as Gender dysphoria in needed for severe adolescent and adult pain testosterone cypionate Inject 60 mg into the 0 (DEPOTESTOSTERONE) 200 muscle once a week MG/ML injectionIndications: Transgender Male azithromycin (ZITHROMAX) Take 2 tablets (500 6 tablet 0 12/24/2019 250 MG mg) by mouth daily tabletIndications: for 1 day, THEN 1 Gender dysphoria in tablet (250 mg) daily adolescent and adult for 4 days. hydrOXYzine (ATARAX) 25 Take 1 tablet (25 mg) 12 tablet 0 0 12/19/2019 12/25/2019 MG tabletIndications: by mouth 3 times Gender dysphoria in daily as needed for adolescent and adult itching documented as of this encounter Nursing Notes Maykel Chakraborty RN - 12/19/2019 6:[address] Amaya called and will do a sign out. documented in this encounter Miscellaneous Notes Op Note - Jerzy Up MD - 12/19/2019 7:43 PM CDT Procedure Date: 12/19/2019 ATTENDING: Jerzy Up MD MOTOR VEHICLE FIELD REPRESENTATIVE: Stephanie Carrera PA-C (resident not available. ODETTE did 50% of case). PREOPERATIVE DIAGNOSIS: Gender dysphoria. POSTOPERATIVE DIAGNOSIS: Gender dysphoria. PROCEDURE: Bilateral simple mastectomies with nipple grafts. On-Q catheter placement. ANESTHESIA: GET. ESTIMATED BLOOD LOSS: 100 mL IV FLUIDS: 800 mL URINE OUTPUT: 300 mL COUNTS: Correct. COMPLICATIONS: None. DRAINS: HONEY x 2. SPECIMENS: Right breast 1168 grams, left breast 1187 grams. INDICATIONS: This is a 29-year-old biological female transitioning to male. They have a diagnosis ofgender dysphoria and met [facility] and insurance criteria for gender affirming top surgery. Due to the patient's breast ptosis and volume, they would require double incision for simple mastectomy. The patient desired nipple graft reconstruction. DESCRIPTION OF PROCEDURE: The patient was seen in the preoperative waiting area. The operative siteswere marked. This included the sternal notch, sternal midline, inframammary folds with extensions laterally for possible dog ear removal, vertical line through the nipple-areolar complex, transverse line from the mid humerus as well as a transposed IMF onto the anterior breast, and medial and lateral borders of the breast footplate. Informed consent was obtained after reviewing the possible risks andcomplications including but not limited to the following: Infection, bleeding, hematoma, seroma formation, poor healing, possible spitting suture, possible dehiscence, possible hypertrophic scarring, possible asymmetries or residual deformities, possible need for further surgery, possible injury surrounding neurovascular and musculoskeletal structures as well as intrathoracic and intra-axillary structures, possible altered sensation of the chest wall, including hyper or hyposensitivity, possible partial or complete loss of nipple grafts. Possible anesthetic risks such as DVT, PE and cardiopulmonaryarrest. The patient was then brought to the operating room, placed supine on the OR table. After general anesthesia was administered, the patient was oral endotracheally intubated. Once the patient wason the vent, the arms were secured to arm boards with Jose wraps. Brownlee was placed. The patient already had sequential compression devices on the lower extremities prior to induction. Pillows and paddedsafety straps were used for the thighs and forelegs. A lower Radha Hugger was placed. Ancef was givenby Anesthesia prior to first incision. The patient was put into a sitting position and adjustments were made to gain symmetrical placement on the OR table. Chest breast area was then prepped and drapedin the usual sterile fashion using ChloraPrep. After time-out was taken and the proper patient and procedure were identified, inframammary fold incisions were incised. A PEAK PlasmaBlade was used for the left side and scalpel with traditional Valleylab cautery on the right. Approximately 2 cm of subcutaneous fat was left along the IMF incision before beveling down to the pectoralis fascia. The breast mound was elevated off the pectoral fascia up towards the clavicle, medially towards parasternal border and laterally past the lateral border of the pectoralis major muscle. This allowed us to displace the breast inferiorly and sergio where it overlapped with the IMF incision. This was close to our preoperative markings. The nipple areolar complex was then harvested sharply and kept wrapped in normal saline on the backtable and marked per side. Thebreast mound was then amputated in a similar fashion taking care not to undermine the skin flaps. Due to the shape of the patient's chest, his inferolateral pectoralis muscles were not very well-develop ed and his chest had a tapered appearance. This was somewhat camouflaged by leaving our superior skin flaps slightly thicker laterally. The incision was then temporarily skin stapled and the patient was put into a sitting position. Additional markings were made to gain symmetry between her bilateral incisions as well as to extend our incisions laterally to remove excess tissue fullness in the thorax in axillary region. The additional areas were trimmed and added to the path specimen. Some minimal thinning of the flap was done medially. Once we were happy with our contour and our symmetry, our dissection pockets were irrigated with Ancef solution. Hemostasis was achieved with cautery. Then a #15 JPdrain was introduced through a separate stab wound incision laterally and secured with 3-0 nylon suture. This was draped along the inferior aspect of the dissection pocket. Dual 10-inch On-Q catheters were percutaneously introduced from the epigastrium and draped along the superior aspect of the dissection pocket. These were secured with benzoin and Tegaderm. Definitive closure was then achieved with3-0 Vicryl deep dermal buried sutures followed by 4-0 Vicryl running subcuticular suture. This was somewhat difficult up in the high axilla, but was accomplished and ultimately the incisions were dressed with Exofin Dermabond product. We trimmed the HONEY drains and then connected the tubing to the suction bulb reservoir. We then put the patient into a sitting position and with nipple templates approximately 1.5 to 2 cm in diameter. We located the most aesthetically pleasing position for nipple graft placement. This was approximately 2.5 cm above the IMF incision and about 11 cm from the midline. Thisis a bit more medial than usual due to the patient's tapered chest laterally. These areas were then deepithelialized sharply with a #15 blade. Hemostasis was achieved with direct pressure and a little bit of cautery. The nipple areolar grafts were thinned aggressively on the backtable and then trimmedof any excess nipple or areola. They were then secured to the recipient site using 5-0 fast absorbing interrupted and running cuticular suture. Additional pie crusting was done with 18-gauge needle. The nipple was centrally anchored with 5-0 fast. Bolster dressing consisting of Xeroform sheet and antib iotic-soaked cotton balls was held in place with 2-0 silk tie tie-overs and skin darryl. ABDs were used for drain sponges. Kerlix rolls were unfurled across the anterior chest for padding. The thorax was circumferentially wrapped with a double long 6-inch Jose wrap for compression. The On-Q pump was attached to the catheters. This reservoir containing 550 mL of 0.2% ropivacaine to be delivered at 2 mL per hour per catheter for the next 5 days. The heat sensitive valves were tegadermed to the patient's lateral abdomen. Brownlee was removed. The patient was extubated. The patient was transferred to a stretcher and taken to the recovery room in satisfactory condition having tolerated the procedure without difficulty or complication. Pathology specimens were weighed off the backtable and sent to Pathology for histologic examination. Right breast tissue at 1168 and then the left was 1187 grams. 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 Grafts secured with bolster dressings. Jpx2, on Q pump. Wrapped with kerlix and jose wrap. [id number] documented in this encounter Plan of Treatment Not on filedocumented as of this encounter Procedures Procedure Name Priority Date/Time Associated Comments Diagnosis SURGICAL PATHOLOGY Routine 12/19/2019 2:37 PM Res ults for this EXAM CDT procedure are i n the results section. GLUCOSE BY METER Routine 12/19/2019 11:25 Gender dysphoria in Results for this AM CDT adolescent and procedure are in adult the results section. TRANSGENDER Routine 12/19/2019 11:04 Gender dysphoria in MASTECTOMY AM CDT adolescent and adult documented in this encounter Results Surgical pathology exam (12/19/2019 2:37 PM CDT) Component Value Ref Test Analysis Performed At [facility] Range Method Time Signature Copath Report Patient Name: RICK PATEL MR#: [id number] Specimen #: [id number] Collected: 12/19/2019 Received: 12/20/2019 Reported: 12/27/2019 01:20 Ordering Phy(s): JERZY UP For improved result formatting, select 'View Enhanced Report Format' under Linked Documents section. SPECIMEN(S): A: Breast, left B: Breast, right FINAL DIAGNOSIS: A. Left breast, simple complete mastectomy with nipple graft (1158 g): - Benign breast tissue - No atypical or malignant findings B. Right breast, simple complete mastectomy with nipple rashmi t (1150 g): - Benign breast tissue - No atypical or malignant findings I have personally reviewed all specimens and/or slides, incl uding the listed special stains, and used them with my medical judgement to determine or confirm the final diagnosis. Electronically signed out by: Zoila Wilks M.D, [facility] CLINICAL HISTORY: The patient is a 29 year old biological female transitioning to male. Clinical diagnosis: gender dysphoria. Procedure: Bilateral simple mastectomies with nipple grafts. GROSS: A: ??The specimen is received fresh with proper patient iden tification, labeled breast, left. The specimen consists of a 1157.9 g, 21.7 x 15.3 x 9.2 cm aggregate of fi broadipose tissue and attached skin (skin is 30.9 cm in greatest dimension) with a 4.4 cm in diameter circular defect. The specimen is sectioned to reveal a cut surface consisting of 90% adipose tissue and 10% fibrous tis mindy with no identifiable cysts or masses. Ore Bridge Operator sections are submitted in cassettes A1A2. The specimen is collected at 1437 and placed in formalin at 1500 on 12/19/2019. B: ??The specimen is received fresh with proper patient iden tification, labeled breast, right. The specimen consists of 1150.2 g, 19.3 x 18.7 x 9.0 cm aggregate of fibr oadipose tissue with attached skin (skin is 20.9 cm in greatest dimension) with a 4.9 cm in diameter circular defect. The specimen is sectioned to reveal cut surface consisting of 95% adipose tissue and 5% fibrous tiss ue with no identifiable cysts or masses. Ore Bridge Operator sections are submitted in cassettes B1-B2. The specimen is collected at 1437 and placed in formalin at 1500 on 12/19/2019. (Dictated by: Consuelo Rich 12/20/2019 11:09 AM) MICROSCOPIC: Microscopic examination is performed. ??The breast parenchym a resembles male breast parenchyma, compatible with exogenous androgen therapy. The technical component of this testing was completed at the [facility], with the professional compo nent performed at the [facility], [address] [place] [phone] ([phone]) CPT Codes: A: 27945-PA5 B: 73990-SR9 COLLECTION SITE: Client: [facility] Location: UROR (B) Specimen (Source) Anatomical Collection Method Collection Time Re ceived Time Location / / Volume Laterality Tissue specimen LEFT BREAST 12/19/2019 2:37 PM (specimen) STRUCTURE / CDT Unknown Comment: Second Specimen- 1600 Tissue specimen (specimen) RIGHT BREAST STRUCTURE / 2:37 PM CDT Unknown Comment: Second Specimen-1600 Jerzy JUSTIN AP Performing Organization Address City/State/ZIP Code Phon e Number COPATH Glucose by meter (12/19/2019 11:25 AM CDT) P athologist Signature Glucose 83 70 - 99 12/19/2019 POINT OF CARE mg/dL 11:31 AM CDT TEST, GLUCOSE Specimen Anatomical Collection Method Collection Time Receive d Time (Source) Location / / Volume Laterality 12/19/2019 11:25 12/19/2019 AM CDT 11:31 AM CDT Jerzy JUSTIN POCT Performing Organization Address City/State/ZIP Code Phon e Number FV POINT OF CARE TEST, GLUCOSE POINT OF CARE TEST, GLUCOSE documented in this encounter Visit Diagnoses Diagnosis Gender dysphoria in adolescent and adult Gender dysphoria in adolescent and adult documented in this encounter Admitting Diagnoses Diagnosis Gender dysphoria in adolescent and adult documented in this encounter Administered Medications Inactive Administered Medications - up to 3 most recent administrations Medication Order MAR Action Action Date Dose Rate Site acetaminophen (TYLENOL) tablet 650 Given 12/19/2019 1:09 PM CDT 650 mg mg 650 mg, Oral, ONCE, On Tue12/19/19 at 1300, For 1 dose, Fever (temp greater than 38.0C, 100.4F). Maximum acetaminophen dose from all sources = 75 mg/kg/day not to exceed 4 grams/day., Pre-procedure bupivacaine (MARCAINE) 0.25% Given 12/19/2019 2:50 PM CDT 2 mLs Other (see comments) preservative free injection PRN, Starting on Tue12/19/19 at 1450, Intra-procedure ceFAZolin (ANCEF) 1 g vial to attach to NS 100 ml bag for ADULT or 50 ml bag for PEDS Routine, 1 g, Intravenous, SEE ADMIN INS TRUCTIONS, Starting on Tue12/19/19 at 1112, Intra-Op Dose.?Give every 2 hours while patient in surgery, starting 2 hours after pre-op dose.?DO NOT GIVE intra-op dose if CrC l less than 10 mL/min (on dialysis).?If CrCL less than 50 mL/mi n, double the time interval between doses., Indications: Perioperative Pharmacoprophylaxis, Pre-pr ocedure ceFAZolin (ANCEF) 1,000 mg Given 12/19/2019 4:30 PM 500 mLs Operative Site/Surgical in sodium chloride 0.9% CDT S ite (bottle) 1,000 mL irrigation PRN, Starting on Tue12/19/19 at 1425, Intra-procedure fentaNYL (PF) (SUBLIMAZE) injection 25-5 0 mcg 25-50 mcg, Intravenous, EVERY 2 MIN PRN, other, acute pain, Starting on Tue12/19/19 at 1707, MAX cumulative dose = 250 mcg. Use fentaNYL (SUBLIMAZE) initially, as a short acting agent for acute pain control. If insuffic ient, or a longer acting agent is needed, begin morphine or HYDRO morphone (DILAUDID) if ordered. For ordered IV doses 1-100 mcg give IV Push undiluted over a minim um of 3-5 minutes., PACU HYDROmorphone (PF) (DILAUDID) injection Given 12/19/2019 6:07 PM CDT 0.5 mg 0.3-0.5 mg 0.3-0.5 mg, Intravenous, EVERY 5 MIN PRN, other, acute pain. ??May administer if Respiratory Rate is greater than 10, Starting on Tue12/19/19 at 1707, Max cumulative dose = 2 mg If fentaNYL (SUBLIMAZE) is also ordered, use HYDROmorphone (DILAUDID) if pain control insufficient with fentaNYL (SUBLIMAZE) or a longer acting agent is needed. For ordered IV doses 0.1-4 mg give IV Push undiluted. Administer each 2mg over 2-5 minutes., PACU lactated ringers infusion at 100 mL/hr, Intravenous, CONTINUOUS, C ontinue until IV catheter is weaned, PACU, Starting on Tue12/19/19 at 1715, Until Tue12/19/19 at 2151 naloxone (NARCAN) injection 0.1-0.4 mg 0.1-0.4 mg, Intravenous, EVERY 2 MIN PRN , opioid reversal, Starting on Tue12/19/19 at 1707, For 24 hours, For apnea or imminent respirato ry arrest: give 0.4 mg IV undiluted Q 2 minutes PRN until desired degree of reversal is obtained, stop opioid and notify provider. Continue monitoring until dischar ge criteria are met for a minimum of 2 hours. For severe sedation, decrease in respiratory depth, quality or respiratory rate less than 8: give 0.1 m g IV Q 2 minutes x 3 doses, stop opioid and notify provider. Try to minimize reversa l of analgesia especially in end-of-life patients For ordered IV doses 0.1-2mg gi ve IVP. Give each 0.4mg over 15 seconds in emergency situations. For non-emergent s ituations further dilute in 9mL of NS to facilitate titration of response., Post-procedure ondansetron (ZOFRAN) injection 4 mg 4 mg, Intravenous, EVERY 30 MIN PRN, artemio sea, Administer over 2-5 Minutes, Starting on Tue12/19/19 at 1707, For 2 doses, MAX total dose = 8 mg, including OR dosing. If not resolved in 15 minutes, then go to step 2 [prochlo rperazine (COMPAZINE), if ordered]. Irritant. For ordered IV doses 0.1-4 mg, give IV Push undiluted over 2-5 minutes., PACU ondansetron (ZOFRAN-ODT) ODT tab 4 mg 4 mg, Oral, EVERY 30 MIN PRN, nausea, St arting on Tue12/19/19 at 1707, For 2 doses, MAX total dose = 8 mg, including OR dosi ng. If not resolved in 15 minutes, then go to step 2 [prochlorperazine (COMPAZINE), if ordered]. With dry hands, peel back foil backing and gently remove tablet. Do not push ora l disintegrating tablet through foil backing. Administer immediately on tongue and oral disintegrating tablet dissolves in seconds, then swallo w with saliva. Liquid not required., PACU oxyCODONE (ROXICODONE) tablet 5 mg Given 12/19/2019 6:09 PM CDT 5 mg 5 mg, Oral, EVERY 4 HOURS PRN, moderate to severe pain, Starting on Tue12/19/19 at 1707, Max: 5 mg for opioid-na??ve patient., Post-procedure prochlorperazine (COMPAZINE) injection 1 0 mg 10 mg, Intravenous, EVERY 6 HOURS PRN, nausea, vomitin g, Administer over 1-2 Minutes, Starting on Tue12/19/19 at 1707 , This is Step 2 of the nausea and vomiting protocol. If nausea not resolved in 15 minutes, give m etoclopramide (REGLAN) if ordered (step 3 of nausea and vomiting p rotocol) For ordered IV doses 0.1-10 mg, give IV Push undiluted. Each 5mg over 1 minute., PACU ROPivacaine (NAROPIN) 550 mL New Bag 12/19/2019 5:14 PM Operative Site/Surgical in ON-Q 4 mL/hr ([id number] CDT Site holds 400-500 mL) 10 dual cath disposable pump CONTINUOUS, Starting on Tue12/19/19 at 1115, Medication will be started Intra-operatively, Pre-procedure ropivacaine 0.2% (NAROPIN) 550 mL in ON- Q 4 mL/hr ([id number] holds 400-500 mL) 10 dual cath disposable pump CONTINUOUS, Starting on Tue12/19/19 at 1 715, Medication is continued through to the Patient Care Unit., Post-procedure documented in this encounter Active and Recently Administered Medications Times are shown in CDT. Scheduled Medication Order 12/17/2019 12/18/2019 12/19/2019 acetaminophen (TYLENOL) tablet 650 mg (COMPLETED) 1309 (Given - Provider: Chelsea Kc RN) 650 mg, Oral, ONCE, Tue12/19/19 at 1300, For 1 dose, Fever (temp greater than 38.0C, 100.4F). Maximum acetaminophen dose from all sources = 75 mg/kg/day not to exceed 4 grams/day., Pre-procedure acetaminophen (TYLENOL) tablet 975 mg 1715 (Canceled Entry - Provider: Orders Generic Provider - Comment: Automatically canceled at discontinue of medication order) 975 mg, Oral, ONCE, Tue12/19/19 at 1715, For 1 dose, Maximum acetaminophen dose from all sources = 75 mg/kg/day not to exceed 4 grams/day., PACU ceFAZolin (ANCEF) 1 g vial to attach to NS 100 ml bag for ADULT or 50 ml bag for PEDS Routine, 1 g, Intravenous, SEE ADMIN INS TRUCTIONS, Starting Tue12/19/19 at 1112, Intra-Op Dose.?Give every 2 hours while patient in surgery, starting 2 hours after pre-op dose.?DO NOT GIVE intra-o p dose if CrCl less than 10 mL/min (on d ialysis).?If CrCL less than 50 mL/min, double the time interval between doses., Indications: Perioperative Pharmacoprophylaxis, Pre-procedure ceFAZolin (ANCEF) intermittent infusion 2 g in 100 mL dextrose PRE-MIX (COMPLETED) 1345 (Given - Provid er: Chelsea Rodriguez APRN CRNA)1549 (Given - Provider: Chelsea Rodriguez APRN CRNA)1603 (Canceled Entry - Provider: Chelsea Rodriguez APRN CRNA) Routine, 2 g, Intravenous, PRE-OP/PRE-MT OCEDURE, Starting Tue12/19/19 at 1112, For 1 dose, Give first dose within 1 hour PRIOR to incision. If patient weight is greater than or equal to 120 kg increase dose to 3 g., Indications: Perioperative Pharmacoprophylaxis, Pr e-procedure Continuous Medication Order 12/17/2019 12/18/2019 12/19/2019 lactated ringers infusion 1715 ( Canceled Entry - Provider: Orders Generic Provider - Comment: Automatically canceled at discontinue of medication order) at 100 mL/hr, Intravenous, CONTINUOUS, C ontinue until IV catheter is weaned, PACU, Starting Tue12/19/19 at 1715, Until Tue12/19/19 at 2151 ROPivacaine (NAROPIN) 550 mL in ON-Q 4 m L/hr ([id number] holds 400-500 mL) 10 dual cath disposable pump 1714 (New Bag - Pro vider: Louisa Doherty RN) CONTINUOUS, Starting Tue12/19/19 at 1115 , Medication will be started Intra- operatively, Pre-procedure ropivacaine 0.2% (NAROPIN) 550 mL in ON- Q 4 mL/hr ([id number] holds 400-500 mL) 10 dual cath disposable pump 1715 (Canceled Entry - Provider: Orders Generic Provider - Comment: Automatically canceled at discontinue of medication order) CONTINUOUS, Starting Tue12/19/19 at 1715 , Medication is continued through to the Patient Care Unit., Post-procedure PRN Medication Order 12/17/2019 12/18/2019 12/19/2019 bupivacaine (MARCAINE) 0.25% preservative free injection 1450 (Given - Provider: Jerzy Up MD - Comment: used to prime on-q catheters- 1 ml in each catheter) PRN, Starting Tue12/19/19 at 1450, Intra-procedure ceFAZolin (ANCEF) 1,000 mg in sodium chloride 0.9% (graham ttle) 1,000 mL irrigation 1630 (Given - Provider: Cherelle Up MD) PRN, Starting Tue12/19/19 at 1425, Intra-procedure fentaNYL (PF) (SUBLIMAZE) injection 25-50 mcg 25-50 mcg, Intravenous, EVERY 2 MIN PRN, other, acute pain, Starting Tue12/19/19 at 1707, MAX cumulative dose = 250 mcg. Use fentaNYL (SUBLIMAZE) initially, as a short acting agent for acute pain contro l. If insufficient, or a longer acting a gent is needed, begin morphine or HYDROmorphone (DILAUDID) if ordered. For ordered IV doses 1-100 mcg give IV Push undiluted over a minimum of 3-5 minutes., PACU HYDROmorphone (PF) (DILAUDID) injection 0.3-0.5 mg 1807 (Given - Provider: Bhargavi Live RN) 0.3-0.5 mg, Intravenous, EVERY 5 MIN PRN , other, acute pain. ??May administer if Respiratory Rate is greater than 10, Starting Tue12/19/19 at 1707, Max cumulative dose = 2 mg If fentaNYL (SUBLIMAZE) is also ordered, use HYDROmorphone (DILAUDI D) if pain control insufficient with fentaNYL (SUBLIMAZE) or a longer acting agent is needed. For ordered IV doses 0.1-4 mg give IV Push undiluted. Administer each 2mg over 2-5 minutes., PACU naloxone (NARCAN) injection 0.1-0.4 mg 0.1-0.4 mg, Intravenous, EVERY 2 MIN PRN , opioid reversal, Starting Tue12/19/19 at 1707, For 24 hours, For apnea or imminent respiratory arrest: give 0.4 mg IV undiluted Q 2 minutes PRN until desired de gree of reversal is obtained, stop opioi d and notify provider. Continue monitoring until discharge criteria are met for a minimum of 2 hours. For severe sedation, decrease in respiratory depth, quality or respiratory rate less than 8: give 0. 1 mg IV Q 2 minutes x 3 doses, stop opioid and notify provider. Try to minimize reversal of analgesia especially in end-of-life patients For ordered IV doses 0.1- 2mg give IVP. Give each 0.4mg over 15 se conds in emergency situations. For non- emergent situations further dilute in 9mL of NS to facilitate titration of response., Post-procedure ondansetron (ZOFRAN) injection 4 mg(Linked Group 1) 4 mg, Intravenous, EVERY 30 MIN PRN, artemio sea, Administer over 2-5 Minutes, Starting 12/19/19 at 1707, For 2 doses, MAX total dose = 8 mg, including OR dosing. If not resolved in 15 minutes, then go to step 2 [prochlorperazine (COMPAZINE), i f ordered]. Irritant. For ordered IV doses 0.1-4 mg, give IV Push undiluted over 2-5 minutes., PACU ondansetron (ZOFRAN-ODT) ODT tab 4 mg(Linked Group 1) 4 mg, Oral, EVERY 30 MIN PRN, nausea, St arting 12/19/19 at 1707, For 2 doses, MAX total dose = 8 mg, including OR dosing. If not resolved in 15 minutes, then go to step 2 [prochlorperazine (COMPAZINE ), if ordered]. With dry hands, peel syed k foil backing and gently remove tablet. Do not push oral disintegrating tablet through foil backing. Administer immediately on tongue and oral disintegrating tab let dissolves in seconds, then swallow with saliva. Liquid n ot required., PACU oxyCODONE (ROXICODONE) tablet 5 mg 1808 (Given - Provider: Bhargavi Live RN) 5 mg, Oral, EVERY 4 HOURS PRN, moderate to severe pain, Starting Tue12/19/19 at 1707, Max: 5 mg for opioid-na??ve patient., Post-procedure prochlorperazine (COMPAZINE) injection 10 mg 10 mg, Intravenous, EVERY 6 HOURS PRN, n ausea, vomiting, Administer over 1-2 Minutes, Starting Tue12/19/19 at 1707, This is Step 2 of the nausea and vomiting protocol. If nausea not resolved in 15 minut es, give metoclopramide (REGLAN) if orde red (step 3 of nausea and vomiting protocol) For ordered IV doses 0.1-10 mg, give IV Push undiluted. Each 5mg over 1 minute., PACU Linked Groups Order Group 1: ondansetron (ZOFRAN-ODT) ODT tab 4 mgJump to med 4 mg, Oral, EVERY 30 MIN PRN, nausea, St arting Tue12/19/19 at 1707, For 2 doses
MAX total dose = 8 mg, including OR dosing. If not resolved in 15 minutes, then go to step 2 [prochlorperazine (C OMPAZINE), if ordered]. With dry marshall nds, peel back foil backing and gently remove tablet. Do not push oral disintegrating tablet through foil backing. Administer immediately on tongue and oral d isintegrating tablet dissolves in second s, then swallow with saliva. Liquid not required.
PACU Or ondansetron (ZOFRAN) injection 4 mgJump to med 4 mg, Intravenous, EVERY 30 MIN PRN, artemio sea, Administer over 2-5 Minutes, Starting Tue12/19/19 at 1707, For 2 doses
MAX total dose = 8 mg, including OR dosing. If not resolved in 15 minutes, th en go to step 2 [prochlorperazine (SOFIA ZINE), if ordered]. Irritant. For ordered IV doses 0.1-4 mg, give IV Push undiluted over 2-5 minutes.
PACU documented in this encounter Care Teams Directory Compiler Relationship Specialty Start Date End Date Zoe Mas MD PCP - General 11/03/18 [facility] [address] [place] [address] Corbin Galvin Specialty Call Out Operator Plastic Surgery 11/03/18 Jerzy Up MD Plastic Surgery 11/03/18 [address] [facility] [address] [place] [address] documented as of this encounter
--- OUTSIDE RECORDS SUMMARY | 2022-03-05 17:08 | XMS_ITS | Encounter Summary ---
:1990 Author Organization [place] Address [address] [place] [address]. [place] [address] Care Team Providers Name Role Phone Zoe Mas MD Primary Care Provider Corbin Galvin Unavailable Sowmya Up MD Unavailable Reason for Visit Reason Comments Consult Pt here for top consult (Routine) - Closed Specialty Diagnoses / Procedures Referred By Contact Refer red To Contact Diagnoses Gender dysphoria in adult Zz Plastic Recons Surg 909 [facility] 4th Floor [place], [place] [phone] Referral ID Status Reason Start Date Expiration Date Visits Requ ested Visits Authorized [id number] Closed 11/03/2018 11/03/2019 1 1 Encounter Details Date Type Department Care Team Description 06/12/2019 [facility] Visit [facility] Sowmya Up dysphoria in Reconstructive Surge marely Petersen MD adult (Primary Dx) [address] 4th Floor [facility] 195 [place] [address] [id number] Social History Tobacco Use Types Packs/Day Years Used Date Never Smoker Dip, chew, snus or snuff Jose L t: 03/12/2019 Smokeless Tobacco: Former User Q uit: 03/12/2019 Alcohol Use Standard Drinks/Week Comments Not Currently 0 (1 standard drink = 0.6 oz pure alcoho l) Sex Assigned at Date Recorded Female 11/03/2018 10:19 AM CDT documented as of this encounter Last Filed Vital Signs Vital Sign Reading Time Taken Comments Blood Pressure - - Pulse - - Temperature - - Respiratory Rate - - Oxygen Saturation - - Inhaled Oxygen Concentration - - Weight 92.5 kg (204 lb) 06/12/2019 10:56 AM LION TRAINER Height 163.8 cm (5' 4.5) 06/12/2019 10:56 AM LION TRAINER Body Mass Index 34.48 06/12/2019 10:56 AM LION TRAINER documented in this encounter Progress Notes Sowmya Up MD - 06/12/2019 11:00 AM CST PLASTICS NEW TOP HPI: This is a 28 year old biological female transitioning to male with a history of gender dysphoria, adjustment disorder and PTSD who presents today with his friend/partner, Vane, for a consultationfor top surgery. He prefers pronouns he/him and preferred name is Rick. He was referred by online sources and his PCP and made his appointment 8 months ago. [facility] for a letter of support and he plans to continue seeing her in the future. He has been on testosterone for 8 months, administered by Dr. Mas in [place]. He has been living his chosen gender identity/role for 2+ years, but knew of his trans identity since age 3. Tried to come out at age 15 but mother was not supportive. He binds with GC2B - this causes SOB, chaffing and lower back pain. No breast lumps, skin puckering, nipple drainage, or other breast problems. No history of breast imaging, including mammogram or breast ultrasound. Medical Hx: Gender dysphoria. No history of asthma, diabetes mellitus, or GERD. No bleeding, clotting, healing or scarring problems. Reactive airway disease as a child. Obesity. Adjustment disorder andmild depression - not managed with meds. PTSD. Ileana by proxy as a child - he now hates hospitals and is anti-med. Septic shock secondary to cellulitis in 2011. Surgical Hx: Scheduled for lap CHULA w/ BSO on 07/04/2019 in [place]. T&A. 10 sets of PE tubes asa child related to Philiphaussmitha's by proxy. Family Hx: No family history of breast or ovarian cancer. Maternal grandmother ? Breast cancer, had bilateral mastectomy. Half-sister had breast, ovarian, and pituitary cancer by age of 27. History of obesity, depression, hypertension, NV, CAD on maternal side of family. 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 Relationship status/family: Rick is since 2018 and has a 10-year-old inherited son (Rick did not bear). No longer communicates with biological mother and he does not know his biological father. He currently lives with Vane - aaron ebb and flow according to Rick. Smoking status: Non-smoker. Used to chew tobacco - quit 2 months ago. Alcohol use: None. Diet: Omnivore - loves meat.Caffeine: not much. No soda. Exercise: He plays softball and is trying to organize a co-ed team. Also plays hockey on occasion. Does not do much formal exericise otherwise. Sleep: Averages 4-7 hours ofsleep per night. No insomnia. Has a lot of nightmares - not managed with meds. Vitals: Ht 1.638 m (5' 4.5) Wt 92.5 kg (204 lb) BMI 34.48 kg/m?? (both stated). PE: General: Height: 5' 4.5 Weight: 204 lbs 0 oz Chest: Good upper chest contour - has a barrel chest. Grade 3 ptosis. Prominent breast venous pattern. Some striae more so medially than laterally. Right breast is larger than the left by roughly 100grams. Tattoo of Snoopy blowing a kiss under left breast. Left IMF is roughly 1 cm lower than the left, and IMF's are roughly 2-3 cm low. Moderate lateral thoracic fullness. Large areolas - roughly 6 cm in diameter. Primarily fibro-fatty breast tissue. No lymphadenopathy or palpable masses. Photos taken with consent. A&P: 28 year old biological female transitioning to male who is a good candidate for gender affirming top surgery with one of the following: bilateral simple mastectomy with possible nipple graft reconstruction vs. subcutaneous mastectomy with possible nipple graft reconstruction vs. breast reduction with possible nipple graft reconstruction. Most likely, he will need bilateral simple mastectomy with possible nipple graft reconstruction, depending on intraoperative findings and the patient's desired outcome. At this time, Rick does want nipple grafts. The patient will need a pre-op mammogram inaddition to an H&P from their PCP. His letter of support has been received from his therapist. He wants to have surgery as soon as possible, and hopes to be fully recovered by summer. If this is not possible, he wants to have top surgery after summer/fall 2019. He also met with our Transgender Coordinator to discuss communications with staff and timeline. Any further discussion of risks and complications will be reviewed during the pre-op visit. Once we receive his mammogram results we will initiate the prior authorization process. According to [place] Case Law and [facility] standards of care with an appropriate letter of support form a mental health provider top surgery/mastectomy is medically necessary for the treatment of genderdysphoria. Total time = 30 minutes, over half of which spent discussing surgical options This note was prepared on behalf of Sowmya Up MD, by Trinity Tripp, a trained medical housekeeper, based on my observations and the provider's statements to me. TRAINER documented in this encounter Plan of Treatment Not on filedocumented as of this encounter Visit Diagnoses Diagnosis Gender dysphoria in adult - Primary documented in this encounter Care Teams Multiple Resaw Operator Relationship Specialty Start Date End Date Zoe Mas MD PCP - General 11/03/18 [facility] 1400 [place] [address] Corbin Galvin Specialty Wholesale Loan Processor Plastic Surgery 11/03/18 Sowmya Up MD Plastic Surgery 11/03/[address] [place] [address] 195 [place] [address] documented as of this encounter
--- OUTSIDE RECORDS SUMMARY | 2022-03-05 17:08 | XMS_ITS | Encounter Summary ---
:1990 Author Organization [place] Address [address] [place] [address]. [place] [address] Care Team Providers Name Role Phone Zoe Mas MD Primary Care Provider Corbin Galvin Unavailable Sowmya Up MD Unavailable Encounter Details Date Type Department Care Team Description 12/19/2019 Travel Social History Tobacco Use Types Packs/Day [...] on filedocumented in this encounter Care Teams Firmware Software Verification Engineer Relationship Specialty Start Date End Date Zoe Mas MD PCP - General 11/03/18 [facility] [address] [place] [address] Corbin Galvin Specialty Resource Recovery Engineer Plastic Surgery 11/03/18 Sowmya Up MD Plastic Surgery 11/03/[address] [place] [address] 195 [place] [address] documented as of this encounter
--- OUTSIDE RECORDS SUMMARY | 2022-03-05 17:08 | XMS_ITS | Encounter Summary ---
:1990 Author Organization [place] Address [facility] [place] [address] Care Team Providers Name Role Phone Zoe Mas MD Primary Care Provider Corbin Galvin Unavailable Sowmya Up MD Unavailable Sowmya Up MD Unavailable Reason for Visit Reason Onset Date Comments Prior Authorization 06/21/2019 received [employer]BS [place] phil roval #[id number], date span 06/18/19-12/14/19 Encounter Details Date Type Department Care Team Description 06/21/2019 Telephone General Surgery Sowmya Up Prior Authorization 909 [facility] MD Trinity (received PATRICIA PA [address]th Floor [address] [place] [address] approval #[id number], [place], [place] [address] date span [address] [place], [place] 06/18/19-12/14/19) [phone] (Wo rk) Social History Tobacco Use Types [...] / COVID-19? documented as of this encounter Miscellaneous Notes Telephone Encounter - MilianAnantia - 06/21/2019 3:[address] [facility] PA approval #[id number], date span 06/18/19-12/14/19 WELLNESS documented in this encounter Plan of Treatment Not on filedocumented as of this encounter Visit Diagnoses Not on filedocumented in this encounter Care Teams Master Certified Rv Technician Relationship Specialty Start Date End Date Zoe Mas MD PCP - General 11/03/18 [facility] 1400 [place] [address] Corbin Galvin Specialty Audiometric Technician Plastic Surgery 11/03/18 Sowmya Up MD Plastic Surgery 11/03/18 [facility] [address] [address] Sowmya Up, Assigned Surgical Provider 02/2808/22/21 MD Jurgen WADE [address] [address] documented as of this encounter
--- OUTSIDE RECORDS SUMMARY | 2022-03-05 17:08 | XMS_ITS | Encounter Summary ---
:1990 Author Organization [place] Address [facility] [place] [address] Care Team Providers Name Role Phone Zoe Mas MD Primary Care Provider Corbin Galvin Unavailable Sowmya Up MD Unavailable Encounter Details Date Type Department Care Team Description 10/15/2019 Telephone General Surgery Sowmya Up MD [address] [place] [address] 195 4th [place] [address] [place] [address] 5-[address] [phone] Social History Tobacco Use Types Packs/Day Years [...] this encounter Miscellaneous Notes Telephone Encounter - Elvira Sparks - 10/15/2019 10:39 AM CDT Surgery is scheduled with Dr. Up on 12/23 at [facility]. Scheduled per . H&P: to be completed by PCP POST-OP: 12/31 The RN completed the education regarding the surgery. The surgery packet was provided that contains surgical instructions and a map. They are aware that they will receive a call ~2 days prior to the scheduled procedure and will be given an exact arrival/start time I contacted the patient and spoke with him to confirm the scheduled dates. documented in this encounter Plan of Treatment Not on filedocumented as of this encounter Visit Diagnoses Not on filedocumented in this encounter Care Teams Speech Language Pathologist Assistant Relationship Specialty Start Date End Date Zoe Mas MD PCP - General 11/03/18 [facility] [address] [place] [address] Corbin Galvin Specialty Changeover Operator Plastic Surgery 11/03/18 Sowmya Up MD Plastic Surgery 11/03/[address] [place] [address] 195 [place] [address] documented as of this encounter
--- OUTSIDE RECORDS SUMMARY | 2022-03-05 17:08 | XMS_ITS | Encounter Summary ---
:1990 Author Organization [place] Address [facility]0 [facility] [place] [address] Care Team Providers Name Role Phone Zoe Mas MD Primary Care Provider Corbin Galvin Unavailable Sowmya Up MD Unavailable Reason for Visit Reason Onset Date Comments Schedule Surgery 12/05/2019 Encounter Details Date Type Department Care Team Description 12/05/2019 Telephone General Surgery Sowmya Up, Schedule Surgery 909 [facility] 4th Floor [address] [place] [phone] [place], [place] [address] (Wo rk) Social History Tobacco Use Types [...] this encounter Miscellaneous Notes Telephone Encounter - Eleanor Man - 12/05/2019 4:01 PM CDT Pt left VM asking if we received H&P from PCP. Sent message to Annel's team as this designer/writer does not have access to [facility]. Pt also wanted to clarify if any visitors could attend pre-surg consult on 12/10. This designer/writer left a detailed VM that visitors are not allowed but they could have their caregiver on the phone during their appointment so that the caregiver has all info and can participate. Provided direct callback number. documented in this encounter Plan of Treatment Not on filedocumented as of this encounter Visit Diagnoses Not on filedocumented in this encounter Care Teams Line Analyst Relationship Specialty Start Date End Date Zoe Mas MD PCP - General 11/03/18 [facility] [address] [place] [address] Corbin Galvin Specialty Electrical Maintenance Technician Plastic Surgery 11/03/18 Sowmya Up MD Plastic Surgery 11/03/[address] [place] [address] 195 [place], [place] [address] documented as of this encounter
--- OUTSIDE RECORDS SUMMARY | 2022-03-05 17:08 | XMS_ITS | Encounter Summary ---
:1990 Author Organization [place] Address [facility] [place] [address] Care Team Providers Name Role Phone Zoe Mas MD Primary Care Provider Corbin Galvin Unavailable Sowmya Up MD Unavailable Encounter Details Date Type Department Care Team Description 06/12/2019 PRE VISIT General Surgery Sowmya Up MD [address] [place] [address] 420 [facility] 195 4th [place] [address] [place] [phone] Social History Tobacco Use Types Packs/Day Years [...] this encounter Miscellaneous Notes Telephone Encounter - Lilian Escalona - 05/22/2019 8:40 AM CST FUTURE VISIT INFORMATION FUTURE VISIT INFORMATION: ?? Date: 06/12/19 ?? Time: 11:00am ?? Location: [facility] [place]: ?? Referring provider: Self ?? Referring providers clinic: N/A ?? Reason for visit/diagnosis Top consult RECORDS REQUESTED FROM: No recs to collect T CATCHER documented in this encounter Plan of Treatment Not on filedocumented as of this encounter Visit Diagnoses Not on filedocumented in this encounter Care Teams Radio Survey Worker Relationship Specialty Start Date End Date Zoe Mas MD PCP - General 11/03/18 [facility] 1400 [place] [address] Corbin Galvin Specialty Events Director Plastic Surgery 11/03/18 Sowmya Up MD Plastic Surgery 11/03/18 420 [facility] 195 [place], [place] [address] documented as of this encounter
--- OUTSIDE RECORDS SUMMARY | 2022-03-05 17:08 | XMS_ITS | Encounter Summary ---
:1990 Author Organization [place] Address [address] [place] [address]. [place] [address] Care Team Providers Name Role Phone Zoe Mas MD Primary Care Provider Corbin Galvin Unavailable Sowmya Up MD Unavailable Encounter Details Date Type Department Care Team Description 12/17/2019 Orders Only [facility] Encounter for screening [address] [place] [address] for other viral diseases 1st Floor [place], [place] [phone] Social History Tobacco Use Types Packs/Day Years [...] encounter Procedures Procedure Name Priority Date/Time Associated Diagnosis Comme nts COVID-19 VIRUS Routine 12/17/2019 7:35 AM Encounter for Result s for this (CORONAVIRUS) BY CDT screening for other proc edure are in PCR viral diseases the results section. documented in this encounter Results Asymptomatic COVID-19 Virus (Coronavirus) by PCR (12/17/2019 7:35 AM CDT) [facility] Method Time Signature COVID-19 Nasopharyngeal 12/17/2019 [facility] Virus PCR to 7:36 AM CDT [facility] [place] COVID-19 Not Detected 12/17/2019 [facility] Virus PCR to 9:25 PM CDT [facility] - GENOMICS Result CENTER LABORATORY Comment: Collection of multiple specimens from th e same patient may be necessary to detect the virus. The possibility of a f alse negative should be considered if the patient's recent exposure or clinica l presentation suggests 2019 nCOV infection and diagnostic tests for other causes of illness are negative. Repeat testing may be considered in this setting. Viral RNA was extracted via a validated method and subsequently underwent single step reverse transcriptase-real t laron polymerase chain reaction using primers to the CDC specified N1,N2 gene targets of CoV2 and human AREA MANAGER as an internal control. A negative result does not rule out the presence of real-time PCR inhibitors in the specimen or COVID-19 RNA in kylee ntrations below the limit of detection of the assay. The possibility of a fals e negative should be considered if the patients recent exposure or clinical pr esentation suggests COVID-19. Additional testing or repeat testing req uires consultation with the laboratory. Nasopharyngeal specimen is the preferred choice for swab-based SARS CoV2 testing. When collection of a nasopharyn geal swab is not possible the following are acceptable alternatives: an oropharyngeal (OP) specimen collected by a healthcare professional, or a nasal mid-turbinate (NMT) swab collected by a healthcare professional or by onsite self-collection (using a flocked tapered swab), or an anterior nares specimen collected by a healthcare profe ssional or by onsite self-collection (using a round foam swab). (Centers for Disease Control) Testing performed by [facility], Room 1-210, [address] [place] [address]. T his test was developed and its performance characteristics determined b y the [facility]. It has not been cleared or appr nancy by the FDA. The laboratory is regulated under the Cl inical Laboratory Improvement Amendments of 1988 (CLIA-88) as qualifie d to perform high-complexity testing. This test is used for clinical purposes. It should not be regarded as investigational or for research. Specimen (Source) Anatomical Collection Method Collection Time Re ceived Time Location / / Volume Laterality Specimen from 12/17/2019 7:35 12/17/2019 nasopharyngeal AM CDT 7:36 AM CDT structure (specimen) Sowmya Up MD LAB - MICRO GENERAL ORDERABL ES Performing Organization Address City/State/ZIP Code Phon e Number [facility] [address] [place] [address] [facility] Room: 1-[facility] LABORATORY [address] [phone] [facility] AND [facility] documented in this encounter Visit Diagnoses Diagnosis Encounter for screening for other viral diseases documented in this encounter Care Teams Manager Retirement Relationship Specialty Start Date End Date Zoe Mas MD PCP - General 11/03/18 [facility] 1400 [place] [address] Corbin Galvin Specialty Link Knitting Machine Operator Plastic Surgery 11/03/18 Sowmya Up MD Plastic Surgery 11/03/[address] [place] [address] 195 [place], [place] [address] documented as of this encounter
--- OUTSIDE RECORDS SUMMARY | 2022-03-05 17:08 | XMS_ITS | Encounter Summary ---
:1990 Author Organization [place] Address [facility] [place] [address] Care Team Providers Name Role Phone Zoe Mas MD Primary Care Provider Corbin Galvin Unavailable Sowmya Up MD Unavailable Encounter Details Date Type Department Care Team Description 10/15/2019 Orders Only General Surgery Sowmya Up Encounter for [address] MD Trinity screening for other 4th Floor 420 [facility] viral diseases [place], [place] [address] (Primary Dx) [address] [place], [place] [phone] (Wo rk) Social History Tobacco Use Types [...] been in contact with No / Unsure 12/11/2019 12:05 PM CDT someone who was confirmed or suspected to have Coronavirus / COVID-19? documented as of this encounter Miscellaneous Notes Addendum Note - Shantelle Gramajo RN - 10/15/2019 11:00 AM CDT Addended by: SHANTELLE GRAMAJO on: 12/14/2019 01:29 PM Modules accepted: Orders documented in this encounter Plan of Treatment Not on filedocumented as of this encounter Results Asymptomatic COVID-19 Virus (Coronavirus) by PCR (12/17/2019 7:35 AM CDT) [facility] Method Time Signature COVID-19 Nasopharyngeal 12/17/2019 [facility] Virus PCR to 7:36 AM CDT [facility] [place] COVID-19 Not Detected 12/17/2019 [facility] Virus PCR to 9:25 PM CDT [facility] GENOMICS Result CENTER LABORATORY Comment: Collection of [...] N1,N2 gene targets of CoV2 and human DIETETIC INTERN as an internal control. A negative result [...] (Centers for Disease Control) Testing performed by [facility], Room 1-210, [address] [place], [place] [address]. T his test was developed and its performance characteristics determined b y the [facility]. It has not been cleared or appr [...] Organization Address City/State/ZIP Code Phon e Number [facility] [address] [place] [id number] [facility] Room: 1-[address] [phone] [facility] documented in this encounter Visit Diagnoses Diagnosis Encounter for screening for other viral diseases - Primary documented in this encounter Care Teams Sweatband Shaper Relationship Specialty Start Date End Date Zoe Mas MD PCP - General 11/03/18 [facility] 1400 [place] [address] Corbin Galvin Specialty Special Duty Nurse Plastic Surgery 11/03/18 Sowmya Up MD Plastic Surgery 11/03/18 420 [facility] 195 [place], [place] [address] documented as of this encounter
--- OUTSIDE RECORDS SUMMARY | 2022-03-05 17:08 | XMS_ITS | Encounter Summary ---
:1990 Author Organization [place] Address [facility] [place] [address] Care Team Providers Name Role Phone Zoe Mas MD Primary Care Provider Corbin Galvin Unavailable Sowmya Up MD Unavailable Reason for Visit Reason Onset Date Comments Schedule Surgery 06/28/2019 Encounter Details Date Type Department Care Team Description 06/28/2019 Telephone General Surgery Sowmya Up, Schedule Surgery 909 [facility] 4th Floor [address] [place] [phone] [place], [place] [address] (Wo rk) Social History Tobacco Use Types [...] this encounter Miscellaneous Notes Telephone Encounter - Lachelle Reynaga - 07/02/2019 10:36 AM RESIN PAINTER ORDER RECEIVED VIA: CASE MESSAGE Spoke with patient to schedule surgery with Dr Trinity Up Surgery was scheduled on 09/16 at [facility]) Patient will have pre-surgery visit with PCP -Patient advised H&P is needed or surgery cancellation may occur Post-Op care appointment scheduled? YES on 09/24 Patient is aware a local driver/flute teacher is needed day of surgery. Surgery packet was sent via [employer], patient has my direct contact information for any further questions. Lachelle Reynaag Surgical Kathy-Op Coordinator [phone] N PAINTER documented in this encounter Plan of Treatment Not on filedocumented as of this encounter Visit Diagnoses Not on filedocumented in this encounter Care Teams Director Of Undergraduate Admissions Relationship Specialty Start Date End Date Zoe Mas MD PCP - General 11/03/18 [facility] 1400 [place] [address] Corbin Galvin Specialty Lobsterman Plastic Surgery 11/03/18 Sowmya Up MD Plastic Surgery 11/03/[address] [place] [address] documented as of this encounter
--- OUTSIDE RECORDS SUMMARY | 2022-03-05 17:08 | XMS_ITS | Encounter Summary ---
:1990 Author Organization [place] Address [facility] [place] [address] Care Team Providers Name Role Phone Zoe Mas MD Primary Care Provider Corbin Galvin Unavailable Sowmya Up MD Unavailable Reason for Visit Reason Comments Consult Pt here for pre surgical con sult. Encounter Details Date Type Department Care Team Description 12/11/2019 [facility] Sowmya Up dysphoria in Reconstructive Surge ry MD [facility] (Primary Dx) [address] [facility] [address] [facility] 4th Floor [facility] [address] [place] [id number] [phone] Social History Tobacco Use Types Packs/Day Years [...] Sign Reading Time Taken Comments Blood Pressure 140/84 12/11/2019 12:17 PM CDT Pulse 83 12/11/2019 12:17 PM CDT Temperature 36.7 ??C (98.1 ??F) 12/11/2019 12:17 PM CDT Respiratory Rate - - Oxygen Saturation 100% 12/11/2019 12:17 PM CDT Inhaled Oxygen Concentration - - Weight 96.2 kg (212 lb) 12/11/2019 12:17 PM CDT Height 165.1 cm (5' 5) 12/11/2019 12:17 PM CDT Body Mass Index 35.28 12/11/2019 12:17 PM CDT documented in this encounter Patient Instructions Patient InstructionsJonathon BustilloALYSSIA irby - 12/11/2019 12:30 PM CDT Bilateral Mastectomy Pre and Post op Surgery Instructions You are scheduled for Bilateral mastectomy with nipple grafts on 12/24/2019 at 7:30am You will need to arrive at 5:30 [place] [address]. You can park in the Green Lot and check in on 3rd floor. (See attached map). - Please make sure you have someone to drive you home after your surgery and you will need someone to stay with you at home 24 hours after your surgery. The surgery will be about 3-4 hours long. You will be in recovery afterwards for about 1-2 hours. Before Surgery: - 8 hours prior to surgery stop eating solid food. You can continue to drink clear liquids (water, apple juice, Gatorade) up to 2 hours before surgery. If you have any medications that need to be takenin this timeframe, you can take them with a small sip of water - No Ibuprofen, Advil, Aleve, Naproxen, Motrin, Aspirin for 7 days prior to surgery. If you are having pain in the week before surgery Tylenol is okay to take. - Wear or bring a button up or zip up shirt with you to the hospital. - Wash with surgical soap: ??? Showering with an antiseptic soap prior to an invasive procedure will decrease the bacteria thatis normally found on the skin. ??? Using 1/2 of the bottle for each application. Be sure to use the whole bottle before coming to surgery. ??? The evening before surgery, shower or bathe as you normally would, using your preferred soap. Give special attention to areas where the incisions will be made. Rinse thoroughly. You may wash your hair with your regular shampoo. ??? Next wash your entire body, from the chin down, with the special antiseptic soap (full strength)using a freshly laundered clean washcloth, again giving special attention to areas where incisions will be made. ??? Rinse thoroughly and dry off using a freshly laundered clean towel. ??? Wear clean clothes/pajamas and sleep on clean sheets ??? Repeat steps 2 and 3 in the morning before coming to surgery (using the rest of the bottle of soap). If you have a reaction to the surgical soap, let the nurse know. Events of day: -Check in on the 3rd floor of the hospital for your surgery. Pre-op - After you check in, you will meet with a pre-op nurse. They will go over your medications, review your H&P (pre-op physical), have you change into a paper gown, and your chest will be wiped againwith soap. - They will place compression boots on both legs to help decrease risk of blood clots. - You may be asked to complete a test. If you have had no exposure to sperm, you can decline. - You will meet with the anesthesiologists and nurse supervisor coating who will be keeping you asleep during surgery, they will be placing an IV, and will be monitoring you throughout the surgery. - You will meet with the RN as you are being moved into operating room, they will be helping to position you and keep you comfortable during the surgery. - Dr. Up will meet you in the pre-op area to discuss any questions about surgery, make markingson your chest for planning, and to sign your consent. Intra-op (OR) - A catheter will be placed in your bladder after you are sleeping and is typically removed before you wake up. The longest this would typically be in is in the post-op recovery room if needed. - There will be straps and pillows to help position you and keep you in place during the surgery. - The tissue that is removed will be sent to pathology to be analyzed and then discarded. - HONEY drains will be placed (one in each armpit) and a pain catheter will be placed in the center of your chest. - Closure is done with dissolvable sutures under the skin and is then sealed with glue, and tape. Post-op/Recovery - You can usually go home the same day so long as you are eating, drinking, voiding, and pain is well controlled. You will be sent home with all needed supplies. - Post-Op medications you will be given in addition to the anesthesia include: Zofran (nausea), Oxycodone (pain), Z-meseret (infection), and antipruritic (itching). - You will leave the hospitals with an she bandage wrapped around your chest for compression. You may keep the she bandage on until you come back for your one week post op visit or you may adjust the wrap as needed if it is either too tight or too loose. Post-Op Cares: - No lifting over 5 lbs for 3 weeks after surgery - No stretching arms out or above the head (modified T-jacob) - Walk around frequently to help prevent blood clots - Do deep breathing exercises to prevent pneumonia - No sleeping on stomach x 3 weeks after surgery, if it is difficult not to roll over onto your stomach you can sleep in a recliner or use additional pillows - Do not use any ice packs or heat packs - Preventing constipation will be your responsibility. You can use whatever method works best for you such as; aloe, prune juice, Sennokot or Miralax. - No showering in the first week after your surgery. What to expect at your 1st post op visit: When you come in for your 1st post op visit, we will assess the output of your drains and remove thepain catheter (On-Q) that was placed on your chest. -Please remember to bring the documentations of your output with you to your appointment so we can review how much your drains have been putting out since your surgery. -We will remove the bolsters that was placed on your nipples and teach you how to perform nipple graft dressings. -You will be given supplies to take home and will need to continue wearing the she wrap compression for another week after the drains are removed. Nipple Care: Change nipple dressings daily. Take dressings off prior to showering and reapply after showering. Nodirect shower spray on nipple grafts for 4 weeks. Cut vaseline gauze to nipple size and place over nipple. Place folded white gauze over vaseline gauze and cover with plastic dressing. Do dressing changes for 1 more week. If you continue to have drainage, continue the dressings until drainage stops. Drain Care: You will be discharged with Yusef-Mosquera (HONEY) drainage tubes. These tubes drain fluid from your incision, helping to prevent swelling and reducing the risk for infection. The tube is held in place by a few stitches. Pin your HONEY drain to your clothing by using a safety pin through the plastic loop on the top of the bulb. If the drain is not attached to your clothing, it may pull out from under your skin. Drains are uncomfortable! Emptying the drain bulb: The measuring cup provided by the hospital or a measuring cup that is used only for the HONEY drain. 1. Wash your hands with soap and water. 2. Hold the bulb securely. 3. Remove the drainage plug from the emptying port. 4. Carefully turn the bulb upside down over the measuring cup, and gently squeeze all of the drainage into the measuring cup. 5. Squeeze the middle of the bulb firmly so that the bulb is as flat as possible. 6. While still squeezing the bulb, replace the drainage plug. This step is important to keep the drain suction 7. Measure how much fluid you removed from the bulb. 8. Write down the amount and color of the fluid you removed from the bulb. If you have more than one drain, keep a separate record for each one. 9. Empty the fluid into the toilet and flush. 10. Rinse the measuring cup, and wash your hands with soap and water. 11. You should empty the drain at least two times each day, in the morning and at bedtime. 12. Drainage tubes are removed when the output is less than 20ml in a 24 hour period for 2 consecutive days. 13. Output will be somewhere between 30 to 50 mLs per day, but don't be alarmed if it is more or less. Output may not be equal between sides. Amounts will probably decrease over time. 14. The color coming from the drains may vary from deep red, light pink, or clear yellow. Stripping the tube: To prevent clots from blocking the drain, you will need to ???strip?? it. Stripping means that you use your fingers to squeeze along the length of the drain to help maintain the flow of drainage. ??? Wash your hands. ??? Using one hand, firmly hold the tubing near the insertion site (as close to your skin as the acewrap and gauze dressing will allow). This will prevent the drain from being pulled out while you arestripping it and from pulling on skin and sutures. ??? [place] upper/top fingers and milk with the bottom or lower fingers. ??? Using your index finger and thumb of the other hand, squeeze the tubing below the first hand. You should squeeze it firmly enough so the tubing becomes flat. ??? Maintain pressure on the tube, as you are squeezing, slide your index finger and thumb down the tube about 4-6 inches toward the bulb. (use alcohol wipes or lotion to help). ??? Then, release the hand closest to where the tube is attached to the body (making sure to keep pressure with the other hand), and move upper/anchor hand down. Squeeze, Repeat in segments. ??? Do not release the pressure you are creating in the tubing until you reach the bulb. The whole tube will be flat. ??? If at any time it feels like the tube is pulling away from the skin or starts to hurt STOP! Thenstart over again more gently. ??? Strip the drain each time you empty it. documented in this encounter Progress Notes Sowmya Up MD - 12/11/2019 12:30 PM CDT PLASTICS PRE-OP This is a 29 year old year old biological female transitioning to male who presents for his pre-op visit prior to bilateral simple mastectomy with nipple graft reconstruction scheduled for 12/24/19. He is here on his own but his mother (actually his great-aunt, calls her mother, biological mother not present in his life) is on the phone during our visit. The patient had a negative mammogram on 06/15/19, and his letter of support has been received from Ashley Newberry in private practice. History and physical were done in-person on 12/04 at [facility]. He is still due to for a COVID-19 that will be done on 12/19, 4 days before his surgery date. My RN, Ashley, discussed periop instructions with the patient including: not eating anything 8 hours prior to surgery, drinking clear liquids up to 2 hours before surgery except for morning medications with a sip of water, the preop shower with surgical soap which was given, and wearing a button- or zip-up shirt on the day of surgery. She also instructed the patient to not take any NSAIDs the week prior to surgery, but he may take Tylenol post-op for pain as needed. She also gave the patient a handoutwith information on niki-op topics, including where the surgery will be. I discussed the following with the patient; preop, intraop and postop phases of care on the day of surgery, the placement of a bladder catheter during surgery that will likely be removed in recovery, postop cares and limitations with relation to home and work settings, 5-lb weight restriction for the first 3 weeks postop, and how long to maintain limited activities. We also discussed Zofran, oxycodone, Z-meseret, and antipruritics which will be prescribed. We discussed that preventing constipation will be his responsibility, and that aloe, prune juice or Miralax can help if constipation should occur. In addition, we went over the possible risks and complications involved with this elective procedure. These include but are not limited to: infection, bleeding, hematoma/seroma formation, poor healing - including dehiscence, nipple graft loss, and/or hypertrophic scarring. We also discussed the possibility of altered chest sensation (either hypo- or hypersensitive), residual deformities and/or asymmetries, possible further surgical revisions, and possible injury to surrounding neurovascular and musculoskeletal structures (including intra- axillary or intra-thoracic). Lastly, we discussed anesthetic risks such as DVT/PE or cardiopulmonary events. All of the patient and his mother's questions were answered. Rick will bring any other questions that arise to the day of surgery. I will see him on 12/23! Total time = 20 minutes, all spent educating about upcoming procedure. This note was prepared on behalf of Sowmya Up MD by Trinity Tripp, a trained senior medical billing specialist, based on my observations and the provider's statements to me. documented in this encounter Nursing Notes Jennifer Bustillo LPN - 12/11/2019 12:30 PM CDT Chief Complaint Patient presents with ??? Consult Pt here for pre surgical consult. Vitals: 12/11/19 1217 BP: (!) 140/84 Pulse: 83 Temp: 98.1 ??F (36.7 ??C) TempSrc: Oral SpO2: 100% Weight: 96.2 kg (212 lb) Height: 1.651 m (5' 5) Body mass index is 35.28 kg/m??. 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
--- OUTSIDE RECORDS SUMMARY | 2022-03-05 17:08 | XMS_ITS | Encounter Summary ---
:1990 Author Organization [place] Address [address] [place] [address]. [place] [address] Care Team Providers Name Role Phone Zoe Mas MD Primary Care Provider Corbin Galvin Unavailable Sowmya Up MD Unavailable Encounter Details Date Type Department Care Team Description 12/17/2019 Travel Social History Tobacco Use Types Packs/Day [...] been in contact with No / Unsure 12/17/2019 10:58 AM CDT someone who was confirmed or suspected to have Coronavirus / COVID-19? documented as of this encounter Plan of Treatment Not on filedocumented as of this encounter Visit Diagnoses Not on filedocumented in this encounter Care Teams Scarfer Relationship Specialty Start Date End Date Zoe Mas MD PCP - General 11/03/18 [facility] [address] [place] [address] Corbin Galvin Specialty Prototype Fabricator Plastic Surgery 11/03/18 Sowmya Up MD Plastic Surgery 11/03/[address] [place] [address] [address] [place] [address] documented as of this encounter
--- OUTSIDE RECORDS SUMMARY | 2022-03-05 17:08 | XMS_ITS | Encounter Summary ---
:1990 Author Organization [place] Address [facility] [place] [address] Care Team Providers Name Role Phone Zoe Mas MD Primary Care Provider Corbin Galvin Unavailable Sowmya Up MD Unavailable Reason for Visit Reason Onset Date Comments Prior Authorization 04/20/2019 received VM from abhinav menchaca, called him back. states his insurance will be april he will have medica choice and dawson salgado will have BCBS-asking questions about ther apist, told him yes we would need a los for a PA, but guess there is a wait time Encounter Details Date Type Department Care Team Description 04/20/2019 Telephone General Surgery Sowmya Up Prior Authorization [address] [facility] [address] [facility] MD (received VM from 4th Floor [address] [place] [address] patient, called him [place], [place] [address] back. states his [id number] [place], [place] insurance will be [phone] April he [phone] (Wo rk) will have medica choice and jess marely will have BCBS-asking que stions about therapist , told him yes we woul d need a los for a PA, b ut guess there is a wait time) Social History Tobacco Use Types Packs/Day Years Used Date Never Assessed Sex Assigned at Date Recorded Female 11/03/2018 10:19 AM CDT documented as of this encounter Miscellaneous Notes Telephone Encounter - Onelia Milian - 04/20/2019 2:21 PM CST received VM from patient, called him back. states his insurance will be changing, april he will have medica choice and may will have BCBS-asking questions about therapist, told him yes we would need a los for a PA, but guess there is a wait time to get into an appointment and needs help findingone, gave him Yessi phone # and also asked him to call back-in May when he knows more about his insurance information ABLE FEED MILL OPERATOR documented in this encounter Plan of Treatment Not on filedocumented as of this encounter Visit Diagnoses Not on filedocumented in this encounter Care Teams Resident Services Supervisor Relationship Specialty Start Date End Date Zoe Mas MD PCP - General 11/03/18 [facility] [address] [place] [address] Corbin Galvin Specialty Scientific Process Operator Plastic Surgery 11/03/18 Sowmya pU MD Plastic Surgery 11/03/18 [address] [facility] [address] [place] [address] documented as of this encounter
--- OUTSIDE RECORDS SUMMARY | 2022-03-05 17:08 | XMS_ITS | Encounter Summary ---
:1990 Author Organization [place] Address [facility] [place] [address] Care Team Providers Name Role Phone Zoe Mas MD Primary Care Provider Corbin Galvin Unavailable Sowmya Up MD Unavailable Reason for Visit Reason Onset Date Comments *-*INCOMING RECORDS*-* 06/18/2019 Encounter Details Date Type Department Care Team Description 06/18/2019 Telephone General Surgery Sowmya Up *-*INCOMING RECORDS*-* 9[address] [facility] MD [facility] 4th Floor [address] [place] [id number] [place], [place] [phone] (Wo rk) Social History Tobacco Use Types [...] this encounter Miscellaneous Notes Telephone Encounter - Brian Bustillo - 06/18/2019 10:45 AM CST Records Requested Facility Allyson Bain. [phone] Outcome Sent a fax request for most recent Mammogram report to be faxed and images to be pushed to [facility] 06/18/19 12:124PM 06/15/2019 Mammogram report received and sent to [facility]na - Brian DING INSULATION INSTALLER documented in this encounter Plan of Treatment Not on filedocumented as of this encounter Visit Diagnoses Not on filedocumented in this encounter Care Teams Building Guard Deputy Sheriff Relationship Specialty Start Date End Date Zoe Mas MD PCP - General 11/03/18 [facility] [address] [place] [address] Corbin Galvin Specialty Drain Technician Plastic Surgery 11/03/18 Sowmya Up MD Plastic Surgery 11/03/[address] [place] [address] 195 [place] [address] documented as of this encounter
--- OUTSIDE RECORDS SUMMARY | 2022-03-05 17:08 | XMS_ITS | Encounter Summary ---
:1990 Author Organization [place] Address [facility] [place] [address] Care Team Providers Name Role Phone Zoe Mas MD Primary Care Provider Corbin Galvin Unavailable Sowmya Up MD Unavailable Encounter Details Date Type Department Care Team Description 06/01/2019 Medical Correspondence [facility] Scan, [facility] Info Mgmt Non-Provider [facility] [address] [place] [address] Social History Tobacco Use Types Packs/Day Years Used Date Never Assessed Sex Assigned at Date Recorded Female 11/03/2018 10:19 AM CDT documented as of this encounter Plan of Treatment Not on filedocumented as of this encounter Visit Diagnoses Not on filedocumented in this encounter Care Teams Erp Business Analyst Relationship Specialty Start Date End Date Zoe Mas MD PCP - General 11/03/18 [facility] [address] [place] [address] Corbin Galvin Specialty Dietitian Teaching Plastic Surgery 11/03/18 Sowmya Up MD Plastic Surgery 11/03/[address] [place] [address] 195 [place], [place] [id number] documented as of this encounter
--- OUTSIDE RECORDS SUMMARY | 2022-03-05 17:08 | XMS_ITS | Encounter Summary ---
:1990 Author Organization [place] Address [address] [place] [address]. [place] [address] Care Team Providers Name Role Phone oZe Mas MD Primary Care Provider Corbin Galvin Unavailable Sowmya Up MD Unavailable Reason for Visit Reason Onset Date Comments Schedule Surgery 12/14/2019 Encounter Details Date Type Department Care Team Description 12/14/2019 Documentation Only General Surgery Sowmya Up Schedule Surgery [address] [facility] [address] MD [facility] 4th Floor [address] [facility] [address] [phone] [place], [place] [phone] Social History Tobacco Use Types Packs/Day Years [...] documented as of this encounter Progress Notes Eleanor Man - 12/14/2019 2:15 PM CDT Moved surgery to 12/[address] Up at [facility]. Pt aware. COVID test scheduled for Tuesday, 12/16. documented in this encounter Plan of Treatment Not on filedocumented as of this encounter Visit Diagnoses Not on filedocumented in this encounter Care Teams Muffler Mechanic Relationship Specialty Start Date End Date Zoe Mas MD PCP - General 11/03/18 [facility] [address] [place], [place] [id number] Corbin Galvin Specialty Concrete Form Setter And Finisher Plastic Surgery 11/03/18 Sowmya Up MD Plastic Surgery 11/03/[address] [place] [address] 195 [place] [address] documented as of this encounter
--- OUTSIDE RECORDS SUMMARY | 2022-03-05 17:08 | XMS_ITS | Encounter Summary ---
:1990 Author Organization [place] Address [facility] [place] [address] Care Team Providers Name Role Phone Zoe Mas MD Primary Care Provider Corbin Galvin Unavailable Sowmya Up MD Unavailable Encounter Details Date Type Department Care Team Description 12/11/2019 Travel Social History Tobacco Use Types Packs/Day [...] on filedocumented in this encounter Care Teams Gum Worker Relationship Specialty Start Date End Date Zoe Mas MD PCP - General 11/03/18 [facility] [address] [place] [address] Corbin Galvin Specialty Hand Potter Plastic Surgery 11/03/18 Sowmya Up MD Plastic Surgery 11/03/18 420 [facility] 195 [place] [address] documented as of this encounter
--- OUTSIDE RECORDS SUMMARY | 2022-03-05 17:08 | XMS_ITS | Encounter Summary ---
:1990 Author Organization [place] Address [facility]0 [facility] [address] Care Team Providers Name Role Phone Zoe Mas MD Primary Care Provider Corbin Galvin Unavailable Sowmya Up MD Unavailable Reason for Visit Reason Onset Date Comments Prior Authorization 06/18/2019 submitted pa online for bilateral mastectomy with BCBS Encounter Details Date Type Department Care Team Description 06/18/2019 Telephone General Surgery Sowmya Up Prior Authorization 909 [facility] (submitted pa online for 4th Floor [address] [facility] bilateral mastectomy [place], [place] [address] with BCBS) [id number] [place], [place] [phone] (Wo rk) Social History Tobacco Use [...] Notes Telephone Encounter - Onelia Milian - 06/18/2019 4:10 PM CST submitted pa online for bilateral mastectomy with BCBS ESTATE SALES AGENT documented in this encounter Plan of Treatment Not on filedocumented as of this encounter Visit Diagnoses Not on filedocumented in this encounter Care Teams Radial Saw Operator Relationship Specialty Start Date End Date Zoe Mas MD PCP - General 11/03/18 [facility] [address] [place] [address] Corbin Galvin Specialty Odd Ticket Clerk Plastic Surgery 11/03/18 Sowmya Up MD Plastic Surgery 11/03/18 [address] [facility] 195 [place], [place] [id number] documented as of this encounter
--- OUTSIDE RECORDS SUMMARY | 2022-03-05 17:08 | XMS_ITS | Encounter Summary ---
:1990 Author Organization [place] Address [address] [place] [address]. [place] [address] Care Team Providers Name Role Phone Zoe [...] simple mastectomy, nipple grafts. OnQ [address] [place] [address] Phone: Fax: Referral ID Status Reason Start Date Expiration Date Visits Requ ested Visits Authorized [id number] 1 1 Encounter Details Date Type Department Care Team Description 12/19/2019 Hospital Encounter UR SE[facility] OR Jerzy Up Gender dysphoria in adolesce nt and adult; [facility] Gender dysphoria [place] [address] [place] [address] [facility] [address] [place], [place] [address] Social History Tobacco Use Types Packs/Day Years [...] To contact a doctor, call or: ??? [phone] and ask for the Resident Director Reactor Projects for: (answered 24 hours a day) ??? Emergency Department: [facility]: [phone] [facility]: [phone] Rev. 02/2014 ON-Q?? C-bloc Continuous Nerve Block [...] o Turn the white wilson on the [id number] dial to the instructed rate. (The rate [...] removed Notifying your Anesthesiologist o Page: Dial [phone], then enter [phone]. You will be prompted to enter your phone number and thenthe # sign. The anesthesiologist will call you back. o Call: Dial [phone]. Ask to speak to the anesthesiologist section crews activities clerk for the [facility]. documented [...] Procedure Date: 12/19/2019 ATTENDING: Jerzy Up MD JEWISH HISTORY PROFESSOR: Stephanie Carrera PA-C (resident not available. ODETTE [...] was 1187 grams. JERZY UP MD MT: LR Name: RICK PATEL Account: [id number] : 1990 Procedure Date: 12/19/2019 Document: [id number] Brief Op Note - Stephanie Carrera PA-C - 12/19/2019 5:22 PM CDT [facility] Brief Operative Note Pre-operative diagnosis: Gender [...] pump. Wrapped with kerlix and jose wrap. CB203cm [id number] documented in this encounter Plan of Treatment [...] Component Value Ref Test Analysis Performed At [facility] Range Method Time Signature Copath Report Patient Name: RICK PATEL MR#: [id number] Specimen #: [id number] Collected: 12/19/2019 Received: 12/20/2019 Reported: 12/27/2019 01:20 [...] Electronically signed out by: Zoila Wilks M.D, [facility] CLINICAL HISTORY: The patient is a 29 [...] mindy with no identifiable cysts or masses. Customer Solutions Coordinator sections are submitted in cassettes A1A2. The [...] ue with no identifiable cysts or masses. Customer Solutions Coordinator sections are submitted in cassettes B1-B2. The specimen is collected at 1437 and placed in formalin at 1500 on 12/19/2019. (Dictated by: Consuelo Rich 12/20/2019 11:09 AM) MICROSCOPIC: Microscopic examination is performed. ??The breast parenchym a resembles male breast parenchyma, compatible with exogenous androgen therapy. The technical component of this testing was completed at the [facility], with the professional compo nent performed at the [facility], [address] [place] [phone] ([phone]) CPT Codes: A: 09292-UB9 B: 54351-FU4 COLLECTION SITE: Client: [facility] Location: UROR (B) Specimen (Source) Anatomical Collection Method Collection Time Re ceived Time Location / / Volume Laterality Tissue specimen LEFT BREAST 12/19/2019 2:37 PM (specimen) STRUCTURE / CDT Unknown Comment: Second Specimen- 1600 Tissue specimen (specimen) RIGHT BREAST STRUCTURE / 2:37 PM CDT Unknown Comment: Second Specimen-1600 Jerzy GREEN - MARGOTH Performing Organization Address City/State/ZIP Code Phon e Number COPATH Glucose by meter (12/19/2019 11:25 AM CDT) athologist Signature Glucose 83 70 - 99 12/19/2019 POINT OF CARE mg/dL 11:31 AM CDT TEST, GLUCOSE Specimen Anatomical Collection Method Collection Time Receive d Time (Source) Location / / Volume Laterality 12/19/2019 11:25 12/19/2019 AM CDT 11:31 AM CDT Jerzy Up MD [facility] POCT Performing Organization Address City/State/ZIP Code Phon [...] PM Operative Site/Surgical in ON-Q 4 mL/hr (BG681-X CDT Site holds 400-500 mL) 10 dual cath disposable pump CONTINUOUS, Starting on Tue12/19/19 at 1115, Medication will be started Intra-operatively, Pre-procedure ropivacaine 0.2% (NAROPIN) 550 mL in ON- Q 4 mL/hr (LF515-O holds 400-500 mL) 10 dual cath disposable [...] (Given - Provid er: Chelsea Rodriguez APRN GENERAL LABORER)1549 (Given - Provider: Chelsea Jerzy Michael, PANEL SAW OPERATOR GENERAL LABORER)1603 (Canceled Entry - Provider: Chelsea Rodriguez APRN CRNA) Routine, 2 g, Intravenous, PRE-OP/PRE-WI OCEDURE, Starting Tue12/19/19 at 1112, For 1 [...] 550 mL in ON-Q 4 m L/hr (XM541-[id number] holds 400-500 mL) 10 dual cath disposable pump 1714 (New Bag - Pro vider: Louisa Doherty RN) CONTINUOUS, Starting Tue12/19/19 at 1115 , Medication will be started Intra- operatively, Pre-procedure ropivacaine 0.2% (NAROPIN) 550 mL in ON- Q 4 mL/hr (WM456-J holds 400-500 mL) 10 dual cath disposable [...] ausea, vomiting, Administer over 1-2 Minutes, Starting 12/19/19 at 1707, This is Step 2 of [...] St arting 12/19/19 at 1707, For 2 doses
MAX total [...] Minutes, Starting 12/19/19 at 1707, For 2 doses
MAX total dose = 8 mg, including OR dosing. If not resolved in 15 minutes, th en go to step 2 [prochlorperazine (SOFIA ZINE), if ordered]. Irritant. For ordered IV doses 0.1-4 mg, give IV Push undiluted over 2-5 minutes.
PACU documented in this encounter Care Teams Route Specialist Relationship Specialty Start Date End Date Zoe Mas MD PCP - General 11/03/18 [facility] [address] [place], [place] [id number] Corbin Galvin Specialty Cross Enterprise Integrator Plastic Surgery 11/03/18 Jerzy Up MD Plastic Surgery 11/03/[address] [place] [address] 195 [place] [address] documented as of this encounter
--- OUTSIDE RECORDS SUMMARY | 2022-03-05 17:08 | XMS_ITS | Encounter Summary ---
:1990 Author Organization [place] Address [address] [place] [address]. 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 OnQ [address] [place] [address] Phone: Fax: Referral ID Status Reason Start Date Expiration Date Visits Requ ested Visits Authorized [id number] 1 1 Encounter Details Date Type Department Care Team Description 12/19/2019 Anesthesia Event [facility] Malathi Coker MD [address] [place] [id number] PeriOp Services Jolynn Edouard APRN FARM MANAGER [address] [place] [place] [phone] [place] [phone] Anesthesia Record Procedure Summary Procedure Name Responsible Anesthesia Start Anesthesia Stop Time Anesthesiologist Time Bilateral Simple Malathi Coker MD 12/19/19 1321 12/19/19 172 7 Mastectomy, Bilateral Nipple Grafts, On-Q (Bilateral Breast) Events Date Time Event Comment 12/19/2019 1321 An Start 1324 An Start Data 1330 An Induction 1336 An Intubation 1337 Anesthesia Complete 1406 AN INCISION 1716 AN Extubation 1719 an stop data 1727 An Stop Electronically s igned by Jolynn Edouard APRN CRNA on December 19, 2019 5:27 PM Name Total midazolam 1mg/mL 2 mg fentaNYL (SUBLIMAZE) injection 300 mcg lidocaine 2% 100 mg propofol (DIPRIVAN) injection 10 mg/mL vial 150 mg rocuronium 10mg/mL 50 mg dexamethasone 4mg/mL 4 mg ondansetron 2mg/mL 4 mg HYDROmorphone 1 mg/ml 1 mg ePHEDrine 5 mg/mL 5 mg phenylephrine (WINSOME-SYNEPHRINE) injection 150 mcg sugammadex 200 mg/2ml 200 mg ceFAZolin (ANCEF) intermittent infusion 2 g in 100 mL dextrose PRE-MIX 3 g LR 900 mL Agents Name NO HELIOX O2 N2O Air Exp Sevoflurane Exp Isoflurane Exp Desflurane Exp N2O Ins Sevoflurane Ins Isoflurane Ins Desflurane O2 Auxiliary Blood No blood administrations on file. Lines, Drains, and Airways Type Details Placement Removal Incision/Surgical Site 12/19/19; 1424; 12/19/19 1424 by Bilateral; Chest Maddy To RN Incision/Surgical Site 12/19/19; 1424; 12/19/19 1424 by Bilateral; Other Maddy To RN (Comment); nipples Closed/Suction Drain 12/19/19; 1534; 1; Left; 12/19/19 1534 by Chest; Bulb; 15 Commercial DiverMaddy To RN Closed/Suction Drain 12/19/19; 1534; 2; Right; 12/19/19 1534 by Chest; Bulb; 15 Commercial DiverMaddy To RN Sub Q Cath 12/19/19; 1536; 12/19/19 1536 by (bilateral); Chest wall; Maddy To RN Dr. Buckley ; [id number] (on-q antimicrobial catheters ) Peripheral IV 12/19/19; 1234; 20 G; 12/19/19 1234 by 12/19/19 1925 by Right; Hand; CozattCarole RN Malone, Sus an, RN Chlorhexidine; Injectable RETIRED ETT 12/19/19; 1336; Mask 12/19/19 1336 by 12/19/19 1 716 by Ventilation: Easy; Ease Michael, Chelsea Michael, Chelsea of Intubation: Easy; HEIDY Deng CRNA, APR N CRNA Airway Size: 7; Cuffed; Oral; Blade Type: Munroe; Blade Size: 2; Place by: [facility]; Insertion Attempts: 1; Secured at (cm)to lip: 21 cm; Breath Sounds: Equal, clear and bilateral; End Tidal CO2: Present; Dentition: Intact, Unchanged; Grade View of Cords: 1 Urethral Catheter 12/19/19; 1345; No; 12/19/19 1345 by 12/19/19 1713 by Anesthesia; 16 fr Maddy To RN Rooney, Sha lene, RN documented in this encounter Social History Tobacco [...] / COVID-19? 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 Anesthesia Type: General Postop Pain Control: Uneventful Sign Out: Well controlled pain PONV: No Neuro/Psych: Uneventful Sign Out: Acceptable/Baseline neuro status Airway/Respiratory: Uneventful Sign Out: Acceptable/Baseline resp. status CV/Hemodynamics: Uneventful Sign Out: Acceptable CV status Other NRE: NONE DID A NON-ROUTINE EVENT OCCUR? No Last Anesthesia Record Vitals: FARM MANAGER VITALS 12/19/2019 1649 - 12/19/2019 1749 12/19/2019 NIBP: 142/82 Pulse: 90 NIBP Mean: 104 Temp: 36.4 ??C (97.5 ??F) SpO2: 100 % Last PACU Vitals: Vitals Value Taken Time BP 144/80 12/19/2019 6:15 PM Temp 36.9 ??C (98.4 ??F) 12/19/2019 6:00 PM Pulse 103 12/19/2019 6:00 PM Resp 10 12/19/2019 6:15 PM SpO2 96 % 12/19/2019 6:15 PM Temp src NIBP 142/82 12/19/2019 5:26 PM Pulse 90 12/19/2019 5:26 PM SpO2 100 % 12/19/2019 5:26 PM Resp Temp 36.4 ??C (97.5 ??F) 12/19/2019 5:26 PM Ht Rate Temp 2 Vitals shown include unvalidated device data. 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 OnQ LABS: CBC: No results found for: WBC, HGB, HCT, PLT BMP: No results found for: NA, POTASSIUM, CHLORIDE, CO2, BUN, CR, GLC COAGS: No results found for: PTT, INR, FIBR POC: Lab Results Component Value Date BGM 83 12/19/2019 OTHER: No results found for: PH, LACT, A1C, WILD, PHOS, MAG, ALBUMIN, PROTTOTAL, ALT, AST, GGT, ALKPHOS, BILITOTAL, BILIDIRECT, LIPASE, AMYLASE, KIRAN, TSH, T4, T3, CRP, SED Preop Vitals BP Readings from Last 3 Encounters: 12/19/19 (!) 130/94 12/11/19 (!) 140/84 Pulse Readings from Last 3 Encounters: 12/19/19 96 12/11/19 83 Resp Readings from Last 3 Encounters: 12/19/19 SpO2 Readings from Last 3 Encounters: 12/19/19 100% 12/11/19 100% Temp Readings from Last 1 Encounters: 12/19/19 36.8 ??C (98.2 ??F) (Oral) Ht Readings from Last 1 Encounters: 12/19/19 1.626 m (5' 4) Wt Readings from Last 1 Encounters: 12/19/19 96.3 kg (212 lb 4.9 oz) Estimated body mass index is 36.44 kg/m?? as calculated from the following: Height as of this encounter: 1.626 m (5' 4). Weight as of this encounter: 96.3 kg (212 lb 4.9 oz). LDA: Peripheral IV 12/19/19 Right Hand (Active) Site Assessment WDL 12/19/19 1234 Line Status Saline locked 12/19/19 1234 Number of days: 0 Past Medical History: Diagnosis Date ??? ADHD ??? Gender dysphoria in adult ??? Moderate persistent asthma Past Surgical History: Procedure Laterality Date ??? HYSTERECTOMY ??? myringotomy ? ? TONSILLECTOMY & ADENOIDECTOMY ??? wisdom teeth extraction Allergies Allergen Reactions ??? Carrots [Daucus Carota] Anaphylaxis ??? Nortriptyline psychosis ??? Shrimp Anaphylaxis (Shellfish containing products) ??? Triptans [Sumatriptan] Other (See Comments) psychosis ??? Verapamil Burning in veins ??? Birch Trees ??? Pollen Extract ??? Yeast Anesthesia Evaluation . Pt has had prior anesthetic. Type: General No history of anesthetic complications ROS/MED HX ENT/Pulmonary: Comment: - s/p tonsillectomy and adenoidectomy (+)allergic rhinitis, Mild Persistent asthma (Has not need to use inhaler for at least one year. Does not take daily maintenance meds.) , . . Neurologic: - neg neurologic ROS Cardiovascular: - neg cardiovascular ROS (+) ----. : . . . :. . No previous cardiac testing METS/Exercise Tolerance: >4 METS Hematologic: - neg hematologic ROS Musculoskeletal: - neg musculoskeletal ROS GI/Hepatic: - neg GI/hepatic ROS (-) GERD Renal/Genitourinary: - ROS Renal section negative Endo: - neg endo ROS Psychiatric: Comment: - ADHD. On ritalin. Infectious Disease: - neg infectious disease ROS Malignancy: - no malignancy Other: - neg other ROS PHYSICAL EXAM: Mental Status/Neuro: A/A/O Airway: Facies: Feasible Mallampati: III Mouth/Opening: Full TM distance: > 6 cm Neck ROM: Full Respiratory: Auscultation: CTAB Resp. Rate: Normal Resp. Effort: Normal CV: Rhythm: Regular Rate: Age appropriate Heart: Normal Sounds Edema: None Comments: Dental: Normal Dentition Assessment: ASA SCORE: 2 H&P: History and physical reviewed and following examination; no interval change. Smoking Status: Non-Smoker/Unknown Plan: Anes. Type: General Pre-Medication: Midazolam; Acetaminophen Induction: IV (Standard) Airway: ETT; Oral Access/Monitoring: PIV Maintenance: Balanced Postop Plan: Postop Pain: Opioids Postop Sedation/Airway: Not planned Disposition: Outpatient PONV Management: Adult Risk Factors:, Non-Smoker, Postop Opioids Prevention: Ondansetron, Dexamethasone CONSENT: Direct conversation Plan and risks discussed with: Patient Blood Products: Consented (ALL Blood Products) Comments for Plan/Consent: - Relevant risks, benefits, alternatives and the anesthetic plan were discussed with patient/family or family premium representative. All questions were answered and there was agreement to proceed. 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 Anesthesia Type: General Note: Airway :Face Mask Patient transferred to:PACU Comments: Regular respirations and patent airway. VSS. IV patent and infusing. Pt resting comfortably. Report given to RN Handoff Report: Identifed the Patient, Identified the Reponsible Provider, Reviewed the pertinent medical history, Discussed the surgical course, Reviewed Intra-OP anesthesia mangement and issues during anesthesia, Set expectations for post-procedure period and Allowed opportunity for questions and acknowledgement of understanding Vitals: (Last set prior to Anesthesia Care Transfer) PHILL VITALS 12/19/2019 1649 - 12/19/2019 1727 12/19/2019 NIBP: 142/82 Pulse: 90 NIBP Mean: 104 Temp: 36.4 ??C (97.5 ??F) SpO2: 100 % Electronically Signed By: Jolynn Edouard APRN CRNA December 19, 2019 5:27 PM documented in this encounter Plan of Treatment Not on filedocumented as of this encounter Visit Diagnoses Not on filedocumented in this encounter Administered Medications Inactive Administered Medications - up to 3 most recent administrations Medication Order MAR Action Action Date Dose Rate Site ceFAZolin (ANCEF) intermittent Given 12/19/2019 3:49 PM CDT 1 g infusion 2 g in 100 mL dextrose PRE-MIX Routine, 2 g, Intravenous, PRE-OP/PRE-PROCEDURE, Starting on Tue12/19/19 at 1112, For 1 dose, Give first dose within 1 hour PRIOR to incision. If patient weight is greater than or equal to 120 kg increase dose to 3 g., Indications: Perioperative Pharmacoprophylaxis, Pre-procedure Given 12/19/2019 1:45 PM CDT 2 g dexamethasone (DECADRON) injection Given 12/19/2019 1:39 PM CDT 4 mg Intravenous, PRN, Administer over 1 Minutes, Starting on Tue12/19/19 at 1339, Anesthesia Intra-op ePHEDrine injection Given 12/19/2019 2:58 PM CDT 5 mg Intravenous, PRN, Starting on Tue12/19/19 at 1458, Anesthesia Intra-op fentaNYL (PF) (SUBLIMAZE) injection Given 12/19/2019 5:17 PM CDT 50 mcg PRN, Administer over 3-5 Minutes, Starting on Tue12/19/19 at 1333, Anesthesia Intra-op Given 12/19/2019 4:07 PM CDT 50 mcg Given 12/19/2019 2:25 PM CDT 50 mcg HYDROmorphone (DILAUDID) injection Given 12/19/2019 4:54 PM CDT 0.5 mg Intravenous, PRN, Starting on Tue12/19/19 at 1403, Anesthesia Intra-op Given 12/19/2019 2:18 PM CDT 0.3 mg Given 12/19/2019 2:03 PM CDT 0.2 mg lactated ringers infusion New Bag 12/19/2019 1:24 PM CDT Intravenous, CONTINUOUS PRN, Anesthesia Intra-op, Starting on Tue12/19/19 at 1324, Until Tue12/19/19 at 1727 lidocaine 2% injection (MDV) Given 12/19/2019 1:33 PM CDT 100 mg Intravenous, PRN, Starting on Tue12/19/19 at 1333, Anesthesia Intra-op midazolam (VERSED) injection Given 12/19/2019 1:24 PM CDT 2 mg Intravenous, Administer over 2 Minutes, PRN, Starting on Tue12/19/19 at 1324, Anesthesia Intra-op ondansetron (ZOFRAN) injection Given 12/19/2019 4:59 PM CDT 4 mg Intravenous, PRN, Administer over 2-5 Minutes, Starting on Tue12/19/19 at 1659, Anesthesia Intra-op phenylephrine (WINSOME-SYNEPHRINE) injection Bolus 12/19/2019 3:36 PM CDT 50 mcg Intravenous, CONTINUOUS PRN, Starting on Tue12/19/19 at 1458, Anesthesia Intra-op Bolus 12/19/2019 3:01 PM CDT 50 mcg New Bag 12/19/2019 2:58 PM CDT 50 mcg propofol (DIPRIVAN) injection 10 mg/mL v ial Given 12/19/2019 1:37 PM CDT 50 mg Intravenous, PRN, Starting on Tue12/19/19 at 1333, Anesthesia Intra-op Given 12/19/2019 1:33 PM CDT 100 mg rocuronium injection Given 12/19/2019 1:33 PM CDT 50 mg Intravenous, PRN, Starting on Tue12/19/19 at 1333, Anesthesia Intra-op sugammadex (BRIDION) injection Given 12/19/2019 5:10 PM CDT 200 mg PRN, Starting on Tue12/19/19 at 1710, Anesthesia Intra-op documented in this encounter Care Teams Bottle House Cleaners Supervisor Relationship Specialty Start Date End Date Zoe Mas MD PCP - General 11/03/18 [facility] [address] [place] [address] Corbin Galvin Specialty Clam Shovel Operator Plastic Surgery 11/03/18 Sowmya Up MD Plastic Surgery 11/03/[address] [place] [address] documented as of this encounter
--- OUTSIDE RECORDS SUMMARY | 2022-03-05 17:08 | XMS_ITS | Encounter Summary ---
:1990 Author Organization [place] Address [facility] [place] [address] Care Team Providers Name Role Phone Zoe Mas MD Primary Care Provider Corbin Galvin Unavailable Sowmya Up MD Unavailable Sowmya Up MD Unavailable Reason for Visit Reason Onset Date Comments Call Back 09/10/2019 surgery cancelled Encounter Details Date Type Department Care Team Description 09/10/2019 Telephone General Surgery Sowmya Up Call Back (surgery [address] MD [facility] cancelled) 4th Floor [address] [place] [address] [place], [place] [phone] (Wo rk) Social History Tobacco Use [...] this encounter Miscellaneous Notes Telephone Encounter - Randi Xaviere - 09/10/2019 9:12 AM CDT [facility] Phone Message May a detailed message be left on voicemail: yes Reason for Call: Other: Rick is calling because he had a surgery scheduled for 09-04-[address] Up. He is wanting to know when would be the soonest time to reschedule this surgery. Please call him as soon as possible at [phone] Action Taken: Message routed to: [facility] Plastic Surgery Travel Screening: Not Applicable documented in this encounter Plan of Treatment Not on filedocumented as of this encounter Visit Diagnoses Not on filedocumented in this encounter Care Teams Medical And Scientific Illustrator Relationship Specialty Start Date End Date Zoe Mas MD PCP - General 11/03/18 [facility] [address] [place] [address] Corbin Galvin Specialty Noxious Weeds And Pest Inspector Plastic Surgery 11/03/18 Sowmya Up MD Plastic Surgery 11/03/18 [facility] [address] [address] Sowmya Up, Assigned Surgical Provider 02/2808/22/21 MD Jurgen WADE [address] [id number] documented as of this encounter
--- OUTSIDE RECORDS SUMMARY | 2022-03-05 17:08 | XMS_ITS | Encounter Summary ---
:1990 Author Organization [place] Address [facility] [address] Care Team Providers Name Role Phone Zoe Mas MD Primary Care Provider Corbin Galvin Unavailable Sowmya Up MD Unavailable Reason for Visit Reason Onset Date Comments Schedule Surgery 08/27/2019 POSTPONE DUE TO COVI D19 Encounter Details Date Type Department Care Team Description 08/27/2019 Telephone General Surgery Sowmya Up Schedule Surgery [address] [facility] [address] [facility] [place] (POSTPONE DUE TO 4th Floor [address] [facility] COVID19 ) [place], [place] [id number] [place], [place] [phone] [id number] (Wo rk) Social History Tobacco Use Types [...] this encounter Miscellaneous Notes Telephone Encounter - KavyaNoreen rockyla - 08/27/2019 2:32 PM CDT Confirmed with Rick that we are cancelling surgery with Dr. Up on 09/16 due to the COVID-19 concerns. We are also cancelling any post-op appointment scheduled. I stated that we will call when we are able to reschedule as we are not able to do so at this time. documented in this encounter Plan of Treatment Not on filedocumented as of this encounter Visit Diagnoses Not on filedocumented in this encounter Care Teams Tool And Die Supervisor Relationship Specialty Start Date End Date Zoe Mas MD PCP - General 11/03/18 [facility] [address] [place] [address] Corbin Galvin Specialty Joy Loading Machine Operator Plastic Surgery 11/03/18 Sowmya Up MD Plastic Surgery 11/03/[address] [place] [address] [address] [place] [address] documented as of this encounter
== END 2022-03-05 17:23 | disposition home or self-care (01) ==
LOC: ED 17:06
PROVIDERS: Emergency Provider Emergency Medicine Emergency Medical Services; PCP Family Medicine
DX: L03.114 Cellulitis of left upper limb (principal); T63.441A Toxic effect of venom of bees, accidental (unintentional), initial encounter
CPT/HCPCS: 99283; 99284

== ENCOUNTER 2024-12-01 11:37 | Outpatient (CLI) | payer OTHER, SELFPAY | END 2024-12-01 11:38 | disposition home or self-care (01) | PROVIDERS: PCP Family Medicine; Visit Provider Physician Assistant Surgical | DX: H73.011 Bullous myringitis, right ear (principal) | CPT/HCPCS: 87070 ==